=== PATIENT | female | born 1960 | race Caucasian/White ===

== ENCOUNTER 2023-01-18 22:10 | Emergency (ER) | payer OTHER, MEDICAID ==
[~2023-01-18] VITALS: Ht 157.5 cm; Wt 134.0 kg
[~2023-01-18 22:10] MED LIST: AC325T; AC325T PO; AC500T PO; ACET-461 PO; ACET-93 PO; ACHD5005 PO; ALBU17AE3 IH; ALBU18HF2 INH; ALBU2.5V4 IH; ALBU2.5V4 NEB; ALBU8.5H2 IH; ALBUTERAL INHALER; ALPR.25T; ASP325TEC; ASPI-1238 PO; ASPI-587 PO; ASPI-875 PO; ATOR20TA66 PO; ATOR80TA76 PO; ATR20T PO; ATRV10T PO; CALC-656 PO; CARB15DR2 OU; CEFD300C3 PO; CEFU250T80 PO; CEPH-507 PO; CLIN-144 PO; CLIN300C3 PO; CLOP-31 PO; CLOP75TA28 PO; COZ; CYCL10TA9 PO; DICY20TA57 PO; DILT-27 PO; DILT120C53 PO; DILT120C85 PO; DOCU-143 PO; DOCU100C37 PO; DOCU50LI PO; DOXY-444 PO; DOXY100C2 PO; ENXP40I.4 SC; ESOM20SU PO; EZET10TA49 PO; FLC100T1 PO; FURO-124 PO; FURO40TA4 PO; GABA250S2 PO; GBPN300C PO; HYDR-1231 PO; HYDR-34 PO; HYDR-3583 PO; HYDR-623; HYDR-757; HYDR-757 PO; HYDR1TAB66 PO; HYOS0.1283 SL; IBP800T PO; IBUP-1773 PO; INDO50CA82 PO; IPRA3AMP19 IH; ISOS20TA6 PO; ISOS30TA82 PO; KETO10TA77 PO; LEVO125T6 PO; LEVO137T2; LEVO150T6 PO; LEVO500T69 PO; LORA0.5T PO; LVT.1T PO; Levothyroxine PO; Lipitor; MECL-149 PO; MELO-195; METF-397 PO; METH500T PO; METO-333 PO; METO10TA3 PO; METR500T PO; MTP25TSR; NAPR-243 PO; NAPR220T66 PO; NF-ESOM40C; NITR-65 PO; NITR0.4T39 SL; NITR0.4T42 SL; NITR1PAT57 TD; NITR1PAT62 TOP; NITR1PAT84 TD; NTR.4SL; OMEP20CA12 PO; OMEP20CA18 PO; OMEP20TA2 PO; OMEP40CA36 PO; OMEP40CA6 PO; OMG1KC PO; ONDA-42 SL; ONDA4TAB8 PO; ONDA8TAB13 PO; ORPH100T PO; OXYC-12 PO; PHEN200T27 PO; PNT40TEC PO; POLY119P PO; POTA-53 PO; POVI15DR OU; PRAVASTATIN SODIUM 40 MG TAB; PRD20T PO; PROM25SU10 PR; RANO500T3 PO; RIVA20TA2; RIVA20TA2 PO; ROSU20TA32 PO; ROSU5TAB13 PO; SIME80TA16 PO; SIMV10TA26 PO; SIMV20TA26 PO; SUCR1TAB PO; SULF-222 PO; SULF1TAB38 PO; TEMA15CA54; THYR60TA4 PO; THYR90TA PO; TIZA-186; TOPI50TA13 PO; TRAM-42 PO; TRAM50TA2 PO; TRM50T PO; WARF-48 PO; WARF5TAB PO; WARF6TAB PO; WARF6TAB7 PO; WARF7.5T PO; WARF7.5T3 PO; WRF2.5T PO; WRF3T PO; WRF5T PO; [UNRECOGNIZED DRUG - OTHER]
[2023-01-18 22:37] LABS: BASOPHILS % (AUTO) 0 % (0-10); EOSINOPHILS # (AUTO) 0.1 10^3/uL (0.0-0.3); EOSINOPHILS % (AUTO) 1 % (0-10); HEMATOCRIT 45 % (35-52); HEMOGLOBIN 13.7 g/dL (11.5-16.0); LYMPHOCYTES # (AUTO) 1.5 10^3/uL (1.0-4.0); LYMPHOCYTES % (AUTO) 21 % (12-44); MEAN CORPUSCULAR HEMOGLOBIN 29 pg (25-34); MEAN CORPUSCULAR HGB CONC 31 g/dL (32-36); MEAN CORPUSCULAR VOLUME 93 fL (80-99); MEAN PLATELET VOLUME 10.2 fL (9.0-12.2); MONOCYTES # (AUTO) 0.5 10^3/uL (0.0-1.0); MONOCYTES % (AUTO) 7 % (0-12); NEUTROPHILS % (AUTO) 71 % (42-75); PLATELET COUNT 181 10^3/uL (130-400)
--- NOTE | 2023-01-18 22:37 | ED Neurological Problem ---
General Chief Complaint: Neurological Problems Stated Complaint: [facility] Nursing Triage Note: Pt presents with c/o numbness in face and blurred vision in L eye. She reports onset was approx [id number]. Pt reports history of migraine with numbness in face. Pt did take some benedryl due to thinking she was having a possible allergic reaction to pizza she ate. Symptoms started immediately after eating. History of Present Illness Date Seen by Provider: Jan 18, 2023 Time Seen by Provider: 22:17 Initial Comments 62 yr F with PMH of CAD with most current stent placed 2 weeks ago, on Warfarin/ Migraine/ Asthma/ past PE, is here with c/o left sided facial tingling/ numbness, and left eye blurry vision which began arounf 18:30, after she had pizza. Pt initially thought it might be an allergy reaction to dinner, and took some Benadryl at home. Pt has never had a stroke. Denies fever, chills, chest pain, palpitations, lower extremity or upper extremity weakness or sensation loss, shortness of breath, falls, dysuria. Allergies and Home Medications Allergies Coded Allergies: No Known Drug Allergies (Unverified , 01/18/23) Patient Home Medication List Home Medication List Reviewed: Yes Review of Systems Review of Systems Constitutional: no symptoms reported Eyes: Blurred Vision Ears, Nose, Mouth, Throat: no symptoms reported Respiratory: no symptoms reported Cardiovascular: no symptoms reported Gastrointestinal: no symptoms reported Genitourinary: no symptoms reported Musculoskeletal: no symptoms reported Skin: no symptoms reported Psychiatric/Neurological: Numbness, Tingling Endocrine: No Symptoms Reported Hematologic/Lymphatic: No Symptoms Reported Physical Exam Vital Signs Vital Signs - First Documented 01/18/23 22:21 Temp 35.8 Pulse 63 Resp 18 B/P (MAP) 151/80 (103) Capillary Refill : Less Than 3 Seconds Height, Weight, BMI Height: '" Weight: lbs. oz. kg; 54.00 BMI Method: General Appearance: WD/WN, no apparent distress, obese HEENT: PERRL/EOMI, normal ENT inspection, TMs normal, pharynx normal (No pharyngeal edema) Neck: non-tender, full range of motion, supple, normal inspection Respiratory: chest non-tender, lungs clear, normal breath sounds Cardiovascular: regular rate, rhythm Gastrointestinal: soft Back: normal inspection, no vertebral tenderness Extremities: normal range of motion, non-tender, normal inspection Neurologic/Psychiatric: display manager II-XII nml as tested, no motor/sensory deficits, alert, normal mood/affect, oriented x 3 Crainal Nerves: normal hearing, normal speech, PERRL Motor/Sensory: no motor deficit, no sensory deficit Skin: normal color Stroke NIH Stroke Scale Assessment Select: Initial Level of Consciousness: 0=Alert (0), Level of Consciousness- Questions: 0=Answers both month/age (0), LOC Commands: 0=Performs both tasks (0), Gaze: Normal (0), Visual Lopez: 0=No visual loss (0), Facial Movement (Facial Paresis): 0=Normal symmetrical mnt (0), Motor Function-Arms Right: 0=No drift (0), Motor Function-Arms Left: 0=No drift (0), Motor Function-Legs Right: 0=No drift (0), Motor Function-Legs Left: 0=No drift (0), Limb Ataxia: 0=Absent (0), Sensory: 0=Normal:no loss (0), Best Language: 0=No aphasia (0), Dysarthria: 0=Normal (0), Extinction & Inattention: 0=No abnormality (0), Total: 0 Progress/Results/Core Measures Results/Orders Lab Results Laboratory Tests Test 01/18/23 22:24 01/18/23 22:58 Range/Units White Blood Count 7.0 4.3-11.0 10^3/uL Red Blood Count 4.78 3.80-5.11 10^6/uL Hemoglobin 13.7 11.5-16.0 g/dL Hematocrit 45 35-52 % Mean Corpuscular Volume 93 80-99 fL Mean Corpuscular Hemoglobin 29 25-34 pg Mean Corpuscular Hemoglobin Concent 31 L 32-36 g/dL Red Cell Distribution Width 15.1 H 10.0-14.5 % Platelet Count 181 130-400 10^3/uL Mean Platelet Volume 10.2 9.0-12.2 fL Immature Granulocyte % (Auto) 0 % Neutrophils (%) (Auto) 71 42-75 % Lymphocytes (%) (Auto) 21 12-44 % Monocytes (%) (Auto) 7 0-12 % Eosinophils (%) (Auto) 1 0-10 % Basophils (%) (Auto) 0 0-10 % Neutrophils # (Auto) 5.0 1.8-7.8 10^3/uL Lymphocytes # (Auto) 1.5 1.0-4.0 10^3/uL Monocytes # (Auto) 0.5 0.0-1.0 10^3/uL Eosinophils # (Auto) 0.1 0.0-0.3 10^3/uL Basophils # (Auto) 0.0 0.0-0.1 10^3/uL Immature Granulocyte # (Auto) 0.0 0.0-0.1 10^3/uL Prothrombin Time 22.7 H 12.2-14.7 SEC INR Comment 1.9 H 0.8-1.4 Activated Partial Thromboplast Time 33 24-35 SEC Sodium Level 136 135-145 MMOL/L Potassium Level 3.9 3.6-5.0 MMOL/L Chloride Level 99 98-107 MMOL/L Carbon Dioxide Level 27 21-32 MMOL/L Anion Gap 10 5-14 MMOL/L Blood Urea Nitrogen 10 7-18 MG/DL Creatinine 0.78 0.60-1.30 MG/DL Estimat Glomerular Filtration Rate 85 BUN/Creatinine Ratio 13 Glucose Level 204 H 70-105 MG/DL Calcium Level 9.4 8.5-10.1 MG/DL Corrected Calcium 9.6 8.5-10.1 MG/DL Magnesium Level 2.1 1.6-2.4 MG/DL Total Bilirubin 0.2 0.1-1.0 MG/DL Aspartate Amino Transf (AST/SGOT) 21 5-34 U/L Alanine Aminotransferase (ALT/SGPT) 17 0-55 U/L Alkaline Phosphatase 104 40-136 U/L Troponin I < 0.30 <0.30 NG/ML Total Protein 8.5 H 6.4-8.2 GM/DL Albumin 3.8 3.2-4.5 GM/DL Serum Alcohol < 10 <10 MG/DL Urine Color YELLOW Urine Clarity CLEAR Urine pH 5.5 5-9 Urine Specific [place] >=1.030 1.016-1.022 Urine Protein NEGATIVE NEGATIVE Urine Glucose (UA) NEGATIVE NEGATIVE Urine Ketones NEGATIVE NEGATIVE Urine Nitrite NEGATIVE NEGATIVE Urine Bilirubin NEGATIVE NEGATIVE Urine Urobilinogen 0.2 < = 1.0 MG/DL Urine Leukocyte Esterase NEGATIVE NEGATIVE Urine RBC (Auto) TRACE-I H NEGATIVE Urine RBC 2-5 H /HPF Urine WBC 2-5 /HPF Urine Squamous Epithelial Cells 25-50 H /HPF Urine Crystals NONE /LPF Urine Bacteria LARGE H /HPF Urine Casts NONE /LPF Urine Mucus NEGATIVE /LPF Urine Culture Indicated NO Urine Opiates Screen NEGATIVE NEGATIVE Urine Oxycodone Screen NEGATIVE NEGATIVE Urine Methadone Screen NEGATIVE NEGATIVE Urine Propoxyphene Screen NEGATIVE NEGATIVE Urine Barbiturates Screen NEGATIVE NEGATIVE Ur Tricyclic Antidepressants Screen NEGATIVE NEGATIVE Urine Phencyclidine Screen NEGATIVE NEGATIVE Urine Amphetamines Screen NEGATIVE NEGATIVE Urine Methamphetamines Screen NEGATIVE NEGATIVE Urine Benzodiazepines Screen NEGATIVE NEGATIVE Urine Cocaine Screen NEGATIVE NEGATIVE Urine Cannabinoids Screen NEGATIVE NEGATIVE My Orders Orders - KOLTON KEMP MD Ct Head Wo-R/O Stroke (01/18/23 22:32) Alcohol (01/18/23 22:33) Cbc With Automated Diff (01/18/23 22:33) Comprehensive Metabolic Panel (01/18/23 22:33) Drug Screen Stat (Urine) (01/18/23 22:33) Magnesium (01/18/23 22:33) Protime With Inr (01/18/23 22:33) Partial Thromboplastin Time (01/18/23 22:33) Ua Culture If Indicated (01/18/23 22:33) Troponin I Fs (01/18/23 22:33) Continuous Ekg Monitoring (01/18/23 22:34) Ekg Tracing (01/18/23 22:34) Ct Angio Head/Neck (01/18/23 23:23) Iohexol Injection (Omnipaque 350 Mg/Ml 1 (01/18/23 23:30) Received Contrast (Hold Metformin- Contr (01/18/23 23:30) Ns (Ivpb) (Sodium Chloride 0.9% Ivpb Bag (01/18/23 23:30) Clopidogrel Tablet (Plavix Tablet) (01/19/23 01:00) Aspirin Chewable Tablet (Baby Aspirin Ch (01/19/23 01:00) Medications Given in ED Current Medications Medications Dose Ordered Sig/Thanh Route Start Time Stop Time Status Last Admin Dose Admin Iohexol 100 ml ONCE ONCE IV 01/18/23 23:30 01/18/23 23:31 DC 01/18/23 23:34 100 ML Sodium Chloride 100 ml ONCE ONCE IV 01/18/23 23:30 01/18/23 23:31 DC 01/18/23 23:34 75 ML Vital Signs/I&O 01/18/23 22:21 Temp 35.8 Pulse 63 Resp 18 B/P (MAP) 151/80 (103) Blood Pressure Mean: 103 Progress Progress Note : Progress Note 1. 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, to come to the ER every time this occurs, just to make sure. Pt reports that the blurry vision is new. - Discussed with Radiologist, Dr Cuello, nd this appears a chronic issue, but he is unsure if this is something that has progressively worsened since there is not any old images to compare it to. Advised further work-up. - Discussed with Neurology consult at , Dr Marcos and recommended MRI and dual anti-platelet. Discussed with hospitalist at [facility], Dr Duval, and we do not have MRI until Friday and no neurology on staff so she advised to transfer to at this time. Called back and they have accepted the pt for admission. - Plavix loading dose of 300mg and ASA 81mg given in ER -[facility] not possible due to weather. Local EMS alerted for a red run to . Initial ECG Impression Date: Jan 18, 2023 Initial ECG Impression Time: 22:43 Initial ECG Rate: 64 Initial ECG Rhythm: Normal Sinus Initial ECG Intervals: Normal Initial ECG Impression: Normal, Nonspecific Changes Initial ECG Comparisson: No Previous ECG Available Diagnostic Imaging Diagonstic Imaging: CT Plain Films/CT/US/NM/MRI: head Departure Impression Primary Impression: Symptomatic vertebral artery stenosis without infarction Qualified Codes: I65.02 - Occlusion and stenosis of left vertebral artery Disposition: XFER SHT-TRM HOSP Condition: Stable/Unchanged Admissions Decision to Admit Reason: Admit from ER (General) Transfer Transfer Reason: Exceeds level of care Time Spoke to Accepting Phy: 02:42 Transfer Progress Notes Transfer accepted to for admission. Neurologist: Dr. Marcos Transfer Facility: Method of Transfer: EMS Departure-Patient Inst. Referrals: IASDORA ARORA DO (PCP/Family) Primary Care Physician KOLTON KEMP MD Jan 18, 2023 22:37
[2023-01-18 22:47] LABS: INR 1.9 (0.8-1.4); PROTHROMBIN TIME PATIENT 22.7 SEC (12.2-14.7)
[2023-01-18 22:53] LABS: ALANINE AMINOTRANSFERASE 17 U/L (0-55); ALBUMIN 3.8 GM/DL (3.2-4.5); ALKALINE PHOSPHATASE 104 U/L (40-136); BILIRUBIN,TOTAL 0.2 MG/DL (0.1-1.0); BUN/CREATININE RATIO 13; CALCIUM 9.4 MG/DL (8.5-10.1); CARBON DIOXIDE 27 MMOL/L (21-32); CHLORIDE 99 MMOL/L (98-107); CREATININE SERUM 0.78 MG/DL (0.60-1.30); GFR ESTIMATED 85; GLUCOSE 204 MG/DL (70-105); MAGNESIUM 2.1 MG/DL (1.6-2.4); POTASSIUM 3.9 MMOL/L (3.6-5.0); SODIUM 136 MMOL/L (135-145); TOTAL PROTEIN 8.5 GM/DL (6.4-8.2)
[2023-01-18 23:01] LABS: BILIRUBIN,URINE NEGATIVE (NEGATIVE); CLARITY,URINE CLEAR; COLOR,URINE YELLOW; GLUCOSE, URINE (UA) NEGATIVE (NEGATIVE); KETONES,URINE NEGATIVE (NEGATIVE); LEUKOCYTE ESTERASE ,URINE NEGATIVE (NEGATIVE); NITRITE,URINE NEGATIVE (NEGATIVE); PH,URINE 5.5 (5-9); PROTEIN,URINE NEGATIVE (NEGATIVE)
[2023-01-18 23:05] LABS: BACTERIA,URINE LARGE /HPF; SQUAMOUS EPITHELIAL CELL,UR 25-50 /HPF
[2023-01-18 23:12] LABS: AMPHETAMINE SCREEN, URINE NEGATIVE (NEGATIVE); BARBITURATE SCREEN URINE NEGATIVE (NEGATIVE); BENZODIAZEPINES SCREEN URINE NEGATIVE (NEGATIVE); CANNABINOID SCREEN, URINE NEGATIVE (NEGATIVE); COCAINE SCREEN URINE NEGATIVE (NEGATIVE); METHADONE STAT NEGATIVE (NEGATIVE); OPIATE SCREEN URINE NEGATIVE (NEGATIVE); OXYCODONE STAT NEGATIVE (NEGATIVE); PROPOXYPHENE STAT NEGATIVE (NEGATIVE); TRICYCLIC ANTIDEPRESSANTS SCRE NEGATIVE (NEGATIVE)
[2023-01-18] MEDS ORDERED: NS 100 ML (IVPB) BAG IV ONE (23:30)
[2023-01-18] MEDS ORDERED: HOLD METFORMIN - RECEIVED CONTRAST 20 ML VIAL IV SCH (23:30)
[2023-01-18] MEDS ORDERED: IOHEXOL 350 MG/ML 100 ML (OMNIPAQUE 350) VIAL IV ONE (23:30)
[2023-01-19] MEDS ORDERED: CLOPIDOGREL 300 MG (PLAVIX) TABLET PO ONE ×2 (00:55→01:00)
[2023-01-19] MEDS ORDERED: ASPIRIN 81 MG CHEW (CHILDREN'S ASA) ONE (00:56)
[2023-01-19] MEDS ORDERED: ASPIRIN 81 MG CHEW (CHILDREN'S ASA) PO ONE (01:00)
[2023-01-19 01:39] VITALS: BP 153/106
--- NOTE | 2023-01-19 06:30 | Diagnostic Imaging Report ---
PROCEDURE: CT head wo r/o stroke. TECHNIQUE: Multiple contiguous axial images were obtained through the brain without the use of intravenous contrast. Auto Exposure Controls were utilized during the CT exam to meet ALARA standards for radiation dose reduction. INDICATION: Numbness in the face and blurred vision. COMPARISON: CT of the head on 10/07/2022 FINDINGS: No acute intracranial hemorrhage. The higginbotham-white matter differentiation is preserved. The ventricles and cortical sulci are normal. No intracranial mass or fluid collection. No midline shift or mass effect. The paranasal sinuses and mastoids are clear. The globes and orbits are normal. No skull fracture. IMPRESSION: No acute intracranial hemorrhage. No large vascular territory scales-white loss. No intracranial mass, midline shift, or hydrocephalus. Dictated by: Dictated on workstation # [id number]
--- NOTE | 2023-01-19 07:07 | Diagnostic Imaging Report ---
PROCEDURE: CT angiography of the head and CT angiography of the neck with and without contrast. TECHNIQUE: Contiguous noncontrast images were obtained from the skull base through the vertex. After intravenous contrast administration, helical CT angiography of the neck was performed. Source data was reformatted into 3D MIP projections. Delayed post contrast acquisition was also obtained. Auto Exposure Controls were utilized during the CT exam to meet ALARA standards for radiation dose reduction. INDICATION: Facial numbness and left eye blurred vision. COMPARISON: None FINDINGS: Vascular: Aortic arch is normal. The great vessels are normal. The right common, right internal, and right external carotid artery are patent and normal in caliber. Mild atherosclerosis in the proximal cervical ICA and within the cavernous segment without significant stenosis. The left common, left internal, left external carotid artery are patent and normal in caliber. Mild atherosclerosis in the proximal cervical ICA and cavernous ICA. No significant stenosis. Right vertebral artery is dominant and normal in caliber. Hypoplastic left vertebral artery with multifocal areas of occlusion/stenosis. Intracranial ICA demonstrates atherosclerosis within the cavernous segment without significant stenosis. Patent bilateral middle and anterior cerebral arteries. Patent basilar artery and bilateral final assembly worker. No intracranial stenosis, aneurysm, or arteriovenous malformation. Hypoplastic intracranial left vertebral artery with multifocal areas of stenosis/occlusion. Nonvascular: No acute intracranial hemorrhage. The higginbotham-white matter differentiation is preserved. No midline shift or mass effect. Ventricles and cortical sulci are normal. The paranasal sinuses and mastoids are clear. No skull fracture. The soft tissues demonstrate multiple subcentimeter cervical chain lymph nodes. No enhancing lymph nodes identified. 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 Included lung apices demonstrates emphysema. The osseous structures demonstrate ACDF from C5 C7. IMPRESSION: No acute large vessel occlusion in the head and neck. Hypoplastic left vertebral artery with multifocal areas of stenosis/occlusion. The right vertebral artery is patent. Bilateral carotid atherosclerosis without significant stenosis. 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 Emphysema. Dictated by: Dictated on workstation # [id number]
== END 2023-01-19 01:40 | disposition short-term general hospital (02) ==
LOC: ER FS 22:22
DX: I65.02 Occlusion and stenosis of left vertebral artery (principal); I26.99 Other pulmonary embolism without acute cor pulmonale; E66.9 Obesity, unspecified; Z79.01 Long term (current) use of anticoagulants; Z95.5 Presence of coronary angioplasty implant and graft; Z68.43 Body mass index [BMI] 50.0-59.9, adult; Z28.310 Unvaccinated for COVID-19
CPT/HCPCS: 36415; 70450; 70496; 70498; 80053; 80306; 81000; 83735; 84484; 85025; 85610; 85730; 93005; 99285; G0480; 80320; Q9967

== ENCOUNTER 2023-03-10 18:05 | Emergency (ER) | payer OTHER, MEDICAID ==
[~2023-03-10 18:05] MED LIST changes: +TOPI-241 PO; -TOPI50TA13 PO
--- NOTE | 2023-03-10 18:12 | ED Chest Pain ---
General Stated Complaint: CP History of Present Illness Date Seen by Provider: March 10, 2023 Time Seen by Provider: 18:08 Initial Comments 62-year-old female who presents with chest pain that started approximately hour and a half 2 hours prior to arrival. Patient took a nitro and had some relief and then had a little bit of return of her symptoms. Patient has multiple visits for chest pain. She has had stents x2 by Dr. Del Castillo roof designer at [facility] in [place]. Since her stent she has had a couple ER visits have all been negative. Patient reports she has some mild radiation of the pains subjective feeling of shortness of breath. Patient is just concerned because it seems her frequently happen following her stent placement. Allergies and Home Medications Allergies Coded Allergies: Penicillins (Verified Allergy, Unknown, 01/19/23) adhesive tape (Verified Allergy, Unknown, 01/19/23) atorvastatin (Verified Allergy, Unknown, 01/19/23) bee venom protein (honey bee) (Verified Allergy, Unknown, 01/19/23) isosorbide (Verified Allergy, Unknown, 01/19/23) ketorolac (Verified Allergy, Unknown, 01/19/23) methylprednisolone (Verified Allergy, Unknown, 01/19/23) promethazine (Verified Allergy, Unknown, 01/19/23) venom-honey bee (Unverified Allergy, Unknown, 01/20/23) Uncoded Allergies: TAPE (Allergy, Unknown, 01/20/23) Patient Home Medication List Home Medication List Reviewed: Yes Acetaminophen (Acetaminophen) 500 Mg Tablet, 500-1,000 MG PO Q8H PRN for PAIN- MILD (1-4), (Reported) Entered as Reported by: ALEJANDRA GARCIA on 02/20/16 1558 Aspirin (Aspirin EC) 81 Mg Tablet.dr, 81 MG PO DAILY, (Reported) Entered as Reported by: JANINE DUNCAN on 05/10/22 1004 Cefuroxime Axetil (Cefuroxime) 250 Mg Tablet, 250 MG PO BID Prescribed by: BEE MACE on 01/02/23 1316 Diltiazem HCl (Diltiazem 24Hr ER) 120 Mg Cap.er.24h, 120 MG PO BID Prescribed by: ELZBIETA VELEZ JR, MD on 05/10/22 1219 Ezetimibe (Ezetimibe) 10 Mg Tablet, 10 MG PO HS Prescribed by: ELZBIETA VELEZ JR, MD on 05/10/22 1219 Levothyroxine Sodium (Levothyroxine Sodium) 150 Mcg Tablet, 150 MCG PO HS, (Re ported) Entered as Reported by: ALEJANDRA GARCIA on 02/20/16 1524 Nitroglycerin (Nitroglycerin) 0.4 Mg Tab.subl, 0.4 MG SL UD PRN for CHEST PAIN, (Reported) Entered as Reported by: JANINE DUNCAN on 05/10/22 1004 Nitroglycerin (Nitro-Dur 0.6 MG/HR) 0.6 Mg/Hour Patch.td24, 0.6 MG TD DAILY PRN for CHEST PAIN (ANGINA), (Reported) Entered as Reported by: JANINE DUNCAN on 05/10/22 1004 Omeprazole (Omeprazole) 40 Mg Capsule.dr, 40 MG PO HS, (Reported) Entered as Reported by: JANINE DUNCAN on 05/10/22 1005 Povidone (Soothe Hydration) 1.25 % Drops, 1-2 DROPS OU UD PRN for DRY EYES, (Reported) Entered as Reported by: JANINE DUNCAN on 03/01/22 1220 Rosuvastatin Calcium (Rosuvastatin Calcium) 20 Mg Tablet, 40 MG PO HS Prescribed by: ELZBIETA VELEZ JR, MD on 05/10/22 1219 Sulfamethoxazole/Trimethoprim (Bactrim Ds Tablet) 1 Each Tablet, 1 EACH PO BID Prescribed by: ROWENA MENDEZ on 07/20/22 1841 Warfarin Sodium (Warfarin Sodium) 5 Mg Tablet, 5 MG PO FRI,,FRI @HS, (Reported) Entered as Reported by: ALEJANDRA GARCIA on 02/20/16 1542 Warfarin Sodium (Warfarin Sodium) 5 Mg Tablet, 7.5 MG PO BAIN,MO,,TH @HS, (Reported) Entered as Reported by: JANINE DUNCAN on 07/17/20 1138 Review of Systems Review of Systems Constitutional: No chills, No fever Respiratory: See HPI Cardiovascular: See HPI Gastrointestinal: No Symptoms Reported Genitourinary: No Symptoms Reported Musculoskeletal: no symptoms reported Skin: no symptoms reported Psychiatric/Neurological: No Symptoms Reported Endocrine: No Symptoms Reported Past Tlkgnsd-Khwiyw-Mtanok Hx Family Medical History Arthritis G8 SISTER Cardiovascular disease 03 FATHER Colon cancer 03 MOTHER Completed stroke 03 MOTHER Hypertension 03 MOTHER G8 BROTHER Myocardial infarction 03 MOTHER Thyroid disease G8 SISTER Physical Exam Vital Signs Vital Signs - First Documented 03/10/23 18:24 Temp 36.3 Pulse 64 Resp 20 B/P (MAP) 102/73 (83) Pulse Ox 95 O2 Delivery Room Air Capillary Refill : Height, Weight, BMI Height: '" Weight: lbs. oz. kg; 54.00 BMI Method: General Appearance: No Apparent Distress, WD/WN, Obese Neck: Non Tender, Supple Respiratory: Lungs Clear, Normal Breath Sounds, No Accessory Muscle Use Cardiovascular: Regular Rate, Rhythm, No Edema Gastrointestinal: Non Tender, Soft Extremity: Normal Capillary Refill, Normal Range of Motion Neurologic/Psychiatric: Alert, Oriented x3 Skin: Other Progress/Results/Core Measures Results/Orders Lab Results Laboratory Tests Test 03/10/23 18:13 03/10/23 20:13 Range/Units White Blood Count 9.3 4.3-11.0 10^3/uL Red Blood Count 4.21 3.80-5.11 10^6/uL Hemoglobin 12.3 11.5-16.0 g/dL Hematocrit 39 35-52 % Mean Corpuscular Volume 92 80-99 fL Mean Corpuscular Hemoglobin 29 25-34 pg Mean Corpuscular Hemoglobin Concent 32 32-36 g/dL Red Cell Distribution Width 14.9 H 10.0-14.5 % Platelet Count 195 130-400 10^3/uL Mean Platelet Volume 10.4 9.0-12.2 fL Immature Granulocyte % (Auto) 0 % Neutrophils (%) (Auto) 65 42-75 % Lymphocytes (%) (Auto) 25 12-44 % Monocytes (%) (Auto) 9 0-12 % Eosinophils (%) (Auto) 1 0-10 % Basophils (%) (Auto) 0 0-10 % Neutrophils # (Auto) 6.0 1.8-7.8 10^3/uL Lymphocytes # (Auto) 2.3 1.0-4.0 10^3/uL Monocytes # (Auto) 0.8 0.0-1.0 10^3/uL Eosinophils # (Auto) 0.1 0.0-0.3 10^3/uL Basophils # (Auto) 0.0 0.0-0.1 10^3/uL Immature Granulocyte # (Auto) 0.0 0.0-0.1 10^3/uL Sodium Level 138 135-145 MMOL/L Potassium Level 4.0 3.6-5.0 MMOL/L Chloride Level 102 98-107 MMOL/L Carbon Dioxide Level 24 21-32 MMOL/L Anion Gap 12 5-14 MMOL/L Blood Urea Nitrogen 14 7-18 MG/DL Creatinine 0.73 0.60-1.30 MG/DL Estimat Glomerular Filtration Rate 92 BUN/Creatinine Ratio 19 Glucose Level 90 70-105 MG/DL Calcium Level 8.7 8.5-10.1 MG/DL Corrected Calcium 8.9 8.5-10.1 MG/DL Magnesium Level 2.2 1.6-2.4 MG/DL Total Bilirubin 0.2 0.1-1.0 MG/DL Aspartate Amino Transf (AST/SGOT) 27 5-34 U/L Alanine Aminotransferase (ALT/SGPT) 17 0-55 U/L Alkaline Phosphatase 104 40-136 U/L Troponin I < 0.30 < 0.30 <0.30 NG/ML Pro-B-Type Natriuretic Peptide 47.6 <125.0 PG/ML Total Protein 7.5 6.4-8.2 GM/DL Albumin 3.7 3.2-4.5 GM/DL My Orders Orders - MUHAMMAD,GIGI L DO Ekg Tracing (03/10/23 18:13) Monitor-Rhythm Ecg Trace Only (03/10/23 18:13) Cbc With Automated Diff (03/10/23 18:13) Comprehensive Metabolic Panel (03/10/23 18:13) Magnesium (03/10/23 18:13) Probnp Fs (03/10/23 18:13) Troponin I Fs (03/10/23 18:13) Chest 1 View Ap/Pa Only (03/10/23 18:13) Aspirin Chewable Tablet (Baby Aspirin Ch (03/10/23 18:30) Albuterol/Ipra Inhalation Soln (Duoneb I (03/10/23 18:45) Svn Small Volume Nebulizer (03/10/23 18:39) Troponin I Fs (03/10/23 20:01) Medications Given in ED Current Medications Medications Dose Ordered Sig/Thanh Route Start Time Stop Time Status Last Admin Dose Admin Albuterol/ Ipratropium 3 ml ONCE ONCE INH 03/10/23 18:45 03/10/23 18:46 DC 03/10/23 18:45 3 ML Aspirin 324 mg ONCE ONCE PO 03/10/23 18:30 03/10/23 18:31 DC 03/10/23 18:25 324 MG Vital Signs/I&O 03/10/23 03/10/23 03/10/23 18:24 18:45 20:52 Temp 36.3 36.0 Pulse 64 64 Resp 20 20 B/P (MAP) 102/73 (83) 102/73 Pulse Ox 95 95 95 O2 Delivery Room Air Room Air Room Air Progress Progress Note : Progress Note Patient's diagnostic studies were ordered reviewed and interpreted by me with no significant findings or changes on her labs. Patient had troponin x2 that were negative. Patient's notes and visits were reviewed along with prior EKGs. Patient had 2 EKGs that showed normal sinus rhythm with low QRS but no acute ST changes or elevation or concerning findings. Patient's chest x-ray was ordered reviewed with initial interpretation negative by me with final interpretation per radiology report. 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 Patient has multiple visits for similar symptoms. I discussed with them that at this time I do not feel there is acute coronary syndrome and that hospitalization is not needed. They can call Dr. Del Castillo in the morning to discuss her ER visit to see if he would like any further testing. She does have a media monitor on she continues to janna her symptoms. Patient has sign ificant risk of morbidity and mortality based on her social determinants of health, prior history. Discussed need to return to the ER with any concerns. She is stable and discharged home. Initial ECG Impression Date: March 10, 2023 Initial ECG Impression Time: 18:10 Initial ECG Rate: 63 Initial ECG Rhythm: Normal Sinus Initial ECG Intervals: Normal Initial ECG Impression: Normal Initial ECG Comparisson: Unchanged Comment no acute findings EKG : EKG Time: 19:44 Rhythm: Normal Sinus ECG Comparisson: Unchanged ECG Impression: Normal Comment No acute change Diagnostic Imaging Diagonstic Imaging: Xray Plain Films/CT/US/NM/MRI: chest Comments Date of Exam:03/10/23 CHEST 1 VIEW AP/PA ONLY EXAMINATION: Chest, one view. HISTORY: Chest pain. COMPARISON: 01/02/2023. FINDINGS: The lung volumes are normal. No focal consolidation is seen. No large pleural effusion or pneumothorax is seen. The cardiomediastinal silhouette is enlarged. No acute osseous abnormality is seen. IMPRESSION: 1. Cardiomegaly, similar to the prior exam. No overt pulmonary edema. Reviewed: Reviewed by Me, Reviewed/Discussed Departure Impression Primary Impression: Chest pain not due to acute coronary syndrome Disposition: HOME, SELF-CARE Condition: Stable Departure-Patient Inst. Referrals: PILLO VALDES APRN (PCP/Family) Primary Care Physician Patient Instructions: Troponin Test, Chest Pain Add. Discharge Instructions: Please follow-up with Dr. Del Castillo. You may call his office in the morning. Please discuss with him the possibility of Mikel syndrome that is causing your cardiac pain. Follow-up with your primary care provider as needed. Return to the ER with any concerns GIGI MUHAMMAD DO March 10, 2023 18:12
[2023-03-10 18:20] LABS: BASOPHILS % (AUTO) 0 % (0-10); EOSINOPHILS # (AUTO) 0.1 10^3/uL (0.0-0.3); EOSINOPHILS % (AUTO) 1 % (0-10); HEMATOCRIT 39 % (35-52); HEMOGLOBIN 12.3 g/dL (11.5-16.0); LYMPHOCYTES # (AUTO) 2.3 10^3/uL (1.0-4.0); LYMPHOCYTES % (AUTO) 25 % (12-44); MEAN CORPUSCULAR HEMOGLOBIN 29 pg (25-34); MEAN CORPUSCULAR HGB CONC 32 g/dL (32-36); MEAN CORPUSCULAR VOLUME 92 fL (80-99); MEAN PLATELET VOLUME 10.4 fL (9.0-12.2); MONOCYTES # (AUTO) 0.8 10^3/uL (0.0-1.0); MONOCYTES % (AUTO) 9 % (0-12); NEUTROPHILS % (AUTO) 65 % (42-75); PLATELET COUNT 195 10^3/uL (130-400); WHITE BLOOD COUNT 9.3 10^3/uL (4.3-11.0)
[2023-03-10] MEDS ORDERED: ASPIRIN 81 MG CHEW (CHILDREN'S ASA) PO ONE (18:30)
--- NOTE | 2023-03-10 18:30 | Diagnostic Imaging Report ---
EXAMINATION: Chest, one view. HISTORY: Chest pain. COMPARISON: 01/02/2023. FINDINGS: The lung volumes are normal. No focal consolidation is seen. No large pleural effusion or pneumothorax is seen. The cardiomediastinal silhouette is enlarged. No acute osseous abnormality is seen. IMPRESSION: 1. Cardiomegaly, similar to the prior exam. No overt pulmonary edema. Dictated by: Dictated on workstation # [id number]
[2023-03-10] MEDS ORDERED: RT-ALBUTEROL/IPRATROPIUM 3 ML (DUONEB) VIAL INH ONE (18:45)
[2023-03-10 18:50] LABS: ALKALINE PHOSPHATASE 104 U/L (40-136); BILIRUBIN,TOTAL 0.2 MG/DL (0.1-1.0); BUN/CREATININE RATIO 19; CALCIUM 8.7 MG/DL (8.5-10.1); CARBON DIOXIDE 24 MMOL/L (21-32); CHLORIDE 102 MMOL/L (98-107); CREATININE SERUM 0.73 MG/DL (0.60-1.30); GFR ESTIMATED 92; GLUCOSE 90 MG/DL (70-105); MAGNESIUM 2.2 MG/DL (1.6-2.4); SODIUM 138 MMOL/L (135-145)
[2023-03-10 18:51] LABS: ALANINE AMINOTRANSFERASE 17 U/L (0-55); ALBUMIN 3.7 GM/DL (3.2-4.5); TOTAL PROTEIN 7.5 GM/DL (6.4-8.2)
[2023-03-10 20:52] VITALS: BP 102/73
== END 2023-03-10 20:52 | disposition home or self-care (01) ==
LOC: EDUNIT# 18:05 → ER FS 18:06
DX: R07.9 Chest pain, unspecified (principal); E66.9 Obesity, unspecified; Z68.43 Body mass index [BMI] 50.0-59.9, adult; Z88.6 Allergy status to analgesic agent
CPT/HCPCS: 36415; 71045; 80053; 83735; 83880; 84484; 85025; 93005; 93041; 94640

== ENCOUNTER 2023-03-27 14:57 | Emergency (ER) | payer MEDICARE, MEDICAID ==
[~2023-03-27] VITALS: Ht 157 cm; Wt 136.0 kg
[2023-03-27] MEDS ORDERED: morphine INJ 10 MG/ML 1ML (SYR OR VIAL) IV STA (15:11)
--- NOTE | 2023-03-27 15:14 | ED Chest Pain ---
General Chief Complaint: Chest Pain Stated Complaint: CHEST PAINS Source: patient Exam Limitations: no limitations (ROWENA LYNCH) History of Present Illness Date Seen by Provider: Mar 27, 2023 Time Seen by Provider: 15:13 Initial Comments Patient is a 62-year-old female presents ED with left-sided chest pain. She r eports acute onset of pain 1:30 PM. She states she was riding in the car at the time. She rates pain 8 out of 10. She applied nitro patch with some improvement. Described as sharp without radiation. Associate shortness of breath with nausea. History of coronary artery disease, PE. Currently on warfarin. She states she has been seen for similar type pain in the past. Last seen 2 weeks ago for similar type pain. She denies fever, chills, cough, abdominal pain, headache, dizziness. Patient states she follows up with a photographer lithographic at [facility]. Patient states she attempted to contact her photographer lithographic after her last visit but did not receive a call. (ROWENA LYNCH) Allergies and Home Medications Allergies Coded Allergies: Penicillins (Verified Allergy, Unknown, 01/19/23) adhesive tape (Verified Allergy, Unknown, 01/19/23) atorvastatin (Verified Allergy, Unknown, 01/19/23) bee venom protein (honey bee) (Verified Allergy, Unknown, 01/19/23) isosorbide (Verified Allergy, Unknown, 01/19/23) ketorolac (Verified Allergy, Unknown, 01/19/23) methylprednisolone (Verified Allergy, Unknown, 01/19/23) promethazine (Verified Allergy, Unknown, 01/19/23) venom-honey bee (Unverified Allergy, Unknown, 01/20/23) Uncoded Allergies: TAPE (Allergy, Unknown, 01/20/23) Patient Home Medication List Home Medication List Reviewed: Yes (ROWENA LYNCH) Acetaminophen (Acetaminophen) 500 Mg Tablet, 500-1,000 MG PO Q8H PRN for PAIN- MILD (1-4), (Reported) Entered as Reported by: ALEJANDRA GARCIA on 02/20/16 1558 Aspirin (Aspirin EC) 81 Mg Tablet.dr, 81 MG PO DAILY, (Reported) Entered as Reported by: JANINE DUNCAN on 05/10/22 1004 Cefuroxime Axetil (Cefuroxime) 250 Mg Tablet, 250 MG PO BID Prescribed by: BEE MACE on 01/02/23 1316 Diltiazem HCl (Diltiazem 24Hr ER) 120 Mg Cap.er.24h, 120 MG PO BID Prescribed by: ELZBIETA VELEZ JR, MD on 05/10/22 1219 Ezetimibe (Ezetimibe) 10 Mg Tablet, 10 MG PO HS Prescribed by: ELZBIETA VELEZ JR, MD on 05/10/22 1219 Levothyroxine Sodium (Levothyroxine Sodium) 150 Mcg Tablet, 150 MCG PO HS, (Reported) Entered as Reported by: ALEJANDRA GARCIA on 02/20/16 1524 Nitroglycerin (Nitroglycerin) 0.4 Mg Tab.subl, 0.4 MG SL UD PRN for CHEST PAIN, (Reported) Entered as Reported by: JANINE DUNCAN on 05/10/22 1004 Nitroglycerin (Nitro-Dur 0.6 MG/HR) 0.6 Mg/Hour Patch.td24, 0.6 MG TD DAILY PRN for CHEST PAIN (ANGINA), (Reported) Entered as Reported by: JANINE DUNCAN on 05/10/22 1004 Omeprazole (Omeprazole) 40 Mg Capsule.dr, 40 MG PO HS, (Reported) Entered as Reported by: JANINE DUNCAN on 05/10/22 1005 Povidone (Soothe Hydration) 1.25 % Drops, 1-2 DROPS OU UD PRN for DRY EYES, (Reported) Entered as Reported by: JANINE DUNCAN on 03/01/22 1220 Rosuvastatin Calcium (Rosuvastatin Calcium) 20 Mg Tablet, 40 MG PO HS Prescribed by: ELZBIETA VELEZ JR, MD on 05/10/22 1219 Sulfamethoxazole/Trimethoprim (Bactrim Ds Tablet) 1 Each Tablet, 1 EACH PO BID Prescribed by: ROWENA MENDEZ on 07/20/22 1841 Warfarin Sodium (Warfarin Sodium) 5 Mg Tablet, 5 MG PO WED,,SAT @HS, (Reported) Entered as Reported by: ALEJANDRA GARCIA on 02/20/16 1542 Warfarin Sodium (Warfarin Sodium) 5 Mg Tablet, 7.5 MG PO BAIN,MO,,TH @HS, (Reported) Entered as Reported by: JANINE DUNCAN on 07/17/20 1138 Review of Systems Review of Systems Constitutional: No chills, No diaphoresis, No malaise, No weakness EENTM: No Blurred Vision, No Double Vision, No Eye Pain Respiratory: Denies Cough, Denies Orthopnea; Shortness of Air Cardiovascular: Chest Pain Gastrointestinal: Denies Abdominal Pain, Denies Diarrhea; Nausea; Denies Vomiting Genitourinary: Denies Drainage, Denies Frequency Musculoskeletal: No back pain Skin: No change in color, No change in hair/nails (ROWENA LYNCH) All Other Systems Reviewed Negative Unless Noted: Yes (ROWENA LYNCH) Past Opectnx-Ukpjjg-Znnphd Hx Patient Social History Tobacco Use?: No Substance use?: No Alcohol Use?: No (ROWENA LYNCH) Immunizations Up To Date First/Initial COVID19 Vaccinat: Denies (ROWENA LYNCH) Past Medical History Surgery/Hospitalization HX: GERD; Chronic UTI's; Uterine Fibroids; OA; Chronic Abdominal pain; CAGE surgery neck; Neuropathy; Thyroidectomy; Asthma; Sleep Apnea; DVT (ROWENA LYNCH) Family Medical History Arthritis G8 SISTER Cardiovascular disease 03 FATHER Colon cancer 03 MOTHER Completed stroke 03 MOTHER Hypertension 03 MOTHER G8 BROTHER Myocardial infarction 03 MOTHER Thyroid disease G8 SISTER Physical Exam Vital Signs Vital Signs - First Documented 03/27/23 15:09 Temp 36.5 Pulse 75 Resp 20 B/P (MAP) 144/90 (108) Pulse Ox 95 O2 Delivery Room Air (LAMBERT NEGRETE MD) Vital Signs Capillary Refill : (ROWENA LYNCH) Height, Weight, BMI Height: '" Weight: lbs. oz. kg; 54.00 BMI Method: General Appearance: No Apparent Distress, WD/WN HEENT: PERRL/EOMI, TMs Normal, Normal ENT Inspection, Pharynx Normal Neck: Full Range of Motion, Normal Inspection, Non Tender, Supple Respiratory: Chest Non Tender, Lungs Clear, Normal Breath Sounds, No Accessory Muscle Use, No Respiratory Distress Cardiovascular: Regular Rate, Rhythm, No Edema, No Gallop, No JVD, No Murmur Gastrointestinal: Normal Bowel Sounds, No Organomegaly, No Pulsatile Mass, Non Tender, Soft Extremity: Normal Capillary Refill, Normal Inspection Neurologic/Psychiatric: Alert, Oriented x3, No Motor/Sensory Deficits, Normal Mood/Affect, power hammer operator II-XII Norm as Tested Skin: Normal Color, Warm/Dry (ROWENA LYNCH) Progress/Results/Core Measures Results/Orders Lab Results Laboratory Tests Test 03/27/23 15:15 03/27/23 17:47 Range/Units White Blood Count 10.0 4.3-11.0 10^3/uL Red Blood Count 4.44 3.80-5.11 10^6/uL Hemoglobin 12.9 11.5-16.0 g/dL Hematocrit 41 35-52 % Mean Corpuscular Volume 92 80-99 fL Mean Corpuscular Hemoglobin 29 25-34 pg Mean Corpuscular Hemoglobin Concent 32 32-36 g/dL Red Cell Distribution Width 15.2 H 10.0-14.5 % Platelet Count 207 130-400 10^3/uL Mean Platelet Volume 10.9 9.0-12.2 fL Immature Granulocyte % (Auto) 0 % Neutrophils (%) (Auto) 68 42-75 % Lymphocytes (%) (Auto) 23 12-44 % Monocytes (%) (Auto) 7 0-12 % Eosinophils (%) (Auto) 1 0-10 % Basophils (%) (Auto) 0 0-10 % Neutrophils # (Auto) 6.8 1.8-7.8 10^3/uL Lymphocytes # (Auto) 2.3 1.0-4.0 10^3/uL Monocytes # (Auto) 0.7 0.0-1.0 10^3/uL Eosinophils # (Auto) 0.1 0.0-0.3 10^3/uL Basophils # (Auto) 0.0 0.0-0.1 10^3/uL Immature Granulocyte # (Auto) 0.0 0.0-0.1 10^3/uL Prothrombin Time 21.6 H 12.2-14.7 SEC INR Comment 1.9 H 0.8-1.4 Activated Partial Thromboplast Time 35 24-35 SEC Sodium Level 135 135-145 MMOL/L Potassium Level 4.0 3.6-5.0 MMOL/L Chloride Level 100 98-107 MMOL/L Carbon Dioxide Level 24 21-32 MMOL/L Anion Gap 11 5-14 MMOL/L Blood Urea Nitrogen 11 7-18 MG/DL Creatinine 1.13 0.60-1.30 MG/DL Estimat Glomerular Filtration Rate 54 BUN/Creatinine Ratio 10 Glucose Level 190 H 70-105 MG/DL Calcium Level 9.6 8.5-10.1 MG/DL Corrected Calcium 9.6 8.5-10.1 MG/DL Magnesium Level 2.2 1.6-2.4 MG/DL Total Bilirubin 0.3 0.1-1.0 MG/DL Aspartate Amino Transf (AST/SGOT) 24 5-34 U/L Alanine Aminotransferase (ALT/SGPT) 22 0-55 U/L Alkaline Phosphatase 99 40-136 U/L Myoglobin 37.1 10.0-92.0 NG/ML Troponin I < 0.028 < 0.028 <0.028 NG/ML B-Type Natriuretic Peptide < 10.0 <100.0 PG/ML Total Protein 8.2 6.4-8.2 GM/DL Albumin 4.0 3.2-4.5 GM/DL Lipase 58 8-78 U/L (LAMBERT NEGRETE MD) Medications Given in ED Current Medications Medications Dose Ordered Sig/Thahn Route Start Time Stop Time Status Last Admin Dose Admin Aspirin 324 mg ONCE ONCE PO 03/27/23 15:15 03/27/23 15:16 DC 03/27/23 15:17 324 MG (LAMBERT NEGRETE MD) Vital Signs/I&O 03/27/23 15:09 Temp 36.5 Pulse 75 Resp 20 B/P (MAP) 144/90 (108) Pulse Ox 95 O2 Delivery Room Air (LAMBERT NEGRETE MD) Comment Sinus rhythm, low QRS voltage in pericardial leads, 75 bpm, QRS duration 70 MS, QTc 402 MS (ROWENA LYNCH) Departure Communication (PCP) Reviewed previous ER visits, H&P, lab testing. Differential diagnosis, ACS, pneumonia, pneumothorax, PE. No recent travels or surgeries. Acute onset of chest pain around 1:30 PM while driving. Associate shortness of breath with nausea. No increasing pain with exertion. Similar type pain in the past. She immediately applied nitro patch with improvement of pain 8 out of 10. She follows a photographer lithographic at [facility]. She has history of 3 stents placed. Last stent placed 6 months ago at [facility]. She has been having this intermittent pain since her last stent. On arrival vital signs stable. EKG showed normal sinus rhythm without evidence of ST elevation or depression. No acute changes from her previous visit 2 weeks ago at [facility] for chest pain. She received IV morphine 4 mg and 324 mg of aspirin here with resolution of pain. She was not tachycardic or hypoxic. She does take warfarin for chronic PEs. Patient INR 1.9. Subtherapeutic. She has not taken her warfarin dosed this evening. Chest x-ray was negative for acute abnormalities. She was not hypoxic. She denies flulike symptoms. CBC, CMP, troponin, BNP was ordered. Initial troponin negative. Hematology and chemistry was grossly unremarkable. Due to the reassuring EKG with improvement of her chest pain 3-hour delta troponin was ordered. Delta troponin was negative. She remained asymptomatic during her visit. She states typically Nitropaste helps with her chest pain but did not today. She has a history of intolerant to antianginal medication. Recommend contacting her photographer lithographic tomorrow to discuss further follow-up due to this reoccurring angina since her stent placement. If continue worsening chest pain not resolved with her angina medication recommend returning back to ED. Patient has remained pain free. (ROWENA LYNCH) Impression Primary Impression: Chest pain Disposition: 01 HOME, SELF-CARE Condition: Stable Departure-Patient Inst. Decision time for Depature: 18:10 (ROWENA LYNCH) Referrals: PILLO VALDES APRN (PCP/Family) Primary Care Physician Patient Instructions: Chest Pain Add. Discharge Instructions: Recommend following up with your primary care physician for further evaluation. I recommend continue with your nitro. Follow-up with your photographer lithographic for further evaluation. If any worsening symptoms to return back to ED All discharge instructions reviewed with patient and/or family. Voiced understanding. ATTENDING PHYSICIAN NOTE: I was physically present as attending physician in the emergency department during the care of this patient, but I was not directly involved in the decision making or delivery of care for this patient. (LAMBERT NEGRETE MD) ROWENA LYNCH Mar 27, 2023 15:14 LAMBERT NEGRETE MD Mar 27, 2023 18:24
[2023-03-27] MEDS ORDERED: ASPIRIN 81 MG CHEW (CHILDREN'S ASA) PO ONE (15:15)
[2023-03-27 15:26] LABS: BASOPHILS % (AUTO) 0 % (0-10); EOSINOPHILS # (AUTO) 0.1 10^3/uL (0.0-0.3); EOSINOPHILS % (AUTO) 1 % (0-10); HEMATOCRIT 41 % (35-52); HEMOGLOBIN 12.9 g/dL (11.5-16.0); LYMPHOCYTES # (AUTO) 2.3 10^3/uL (1.0-4.0); LYMPHOCYTES % (AUTO) 23 % (12-44); MEAN CORPUSCULAR HEMOGLOBIN 29 pg (25-34); MEAN CORPUSCULAR HGB CONC 32 g/dL (32-36); MEAN CORPUSCULAR VOLUME 92 fL (80-99); MEAN PLATELET VOLUME 10.9 fL (9.0-12.2); MONOCYTES # (AUTO) 0.7 10^3/uL (0.0-1.0); MONOCYTES % (AUTO) 7 % (0-12); NEUTROPHILS # (AUTO) 6.8 10^3/uL (1.8-7.8); NEUTROPHILS % (AUTO) 68 % (42-75); PLATELET COUNT 207 10^3/uL (130-400)
--- NOTE | 2023-03-27 15:31 | Diagnostic Imaging Report ---
INDICATION: Chest pain Portable chest 3:30 PM There is a loop recorder projecting over left lower chest. Heart size and pulmonary vascularity are normal. Lungs are clear. There are no effusions or pneumothoraces. IMPRESSION: No acute abnormalities in the chest Dictated by: Dictated on workstation # [id number]
[2023-03-27 15:35] LABS: CHLORIDE 100 MMOL/L (98-107); SODIUM 135 MMOL/L (135-145)
[2023-03-27 15:36] LABS: CALCIUM 9.6 MG/DL (8.5-10.1)
[2023-03-27 15:38] LABS: GLUCOSE 190 MG/DL (70-105); INR 1.9 (0.8-1.4); PROTHROMBIN TIME PATIENT 21.6 SEC (12.2-14.7); TOTAL PROTEIN 8.2 GM/DL (6.4-8.2)
[2023-03-27 15:39] LABS: CARBON DIOXIDE 24 MMOL/L (21-32)
[2023-03-27 15:40] LABS: BILIRUBIN,TOTAL 0.3 MG/DL (0.1-1.0)
[2023-03-27 15:41] LABS: ALKALINE PHOSPHATASE 99 U/L (40-136); CREATININE SERUM 1.13 MG/DL (0.60-1.30); GFR ESTIMATED 54
[2023-03-27 15:42] LABS: BUN/CREATININE RATIO 10
[2023-03-27 15:44] LABS: ALANINE AMINOTRANSFERASE 22 U/L (0-55); MAGNESIUM 2.2 MG/DL (1.6-2.4)
[2023-03-27 15:45] LABS: LIPASE 58 U/L (8-78)
[2023-03-27 18:35] VITALS: BP 119/67
== END 2023-03-27 18:28 | disposition home or self-care (01) ==
LOC: EDUNIT# 14:57 → ER 14:59
DX: R07.89 Other chest pain (principal); R06.02 Shortness of breath; R11.0 Nausea; Z86.711 Personal history of pulmonary embolism; Z95.5 Presence of coronary angioplasty implant and graft; Z95.1 Presence of aortocoronary bypass graft; Z88.6 Allergy status to analgesic agent; Z79.01 Long term (current) use of anticoagulants; Z28.310 Unvaccinated for COVID-19
CPT/HCPCS: 36415; 71045; 80053; 83690; 83735; 83874; 83880; 84484; 85025; 85610; 85730; 93005; 93041

== ENCOUNTER 2023-04-03 18:01 | Emergency (ER) | payer MEDICARE, MEDICAID ==
[~2023-04-03] VITALS: Ht 157 cm; Wt 138.0 kg
[~2023-04-03 18:01] MED LIST changes: +DILT120C71 PO; -DILT120C85 PO
[2023-04-03 18:09] VITALS: BP 145/96
--- NOTE | 2023-04-03 18:09 | ED Chest Pain ---
General Stated Complaint: CHEST PAIN History of Present Illness Date Seen by Provider: Apr 03, 2023 Time Seen by Provider: 18:04 Initial Comments 62-year-old female presents with chest pain that started just prior to arrival. Patient has numerous visits for exactly the same thing. She was just right in the car when it happened. Sharp stabbing. She does have her own nitro pass on. Patient saw Dr. Del Castillo's PA yesterday and they have arranged for her to have an outpatient echo and then repeat stress test. Allergies and Home Medications Allergies Coded Allergies: Penicillins (Verified Allergy, Unknown, 01/19/23) adhesive tape (Verified Allergy, Unknown, 01/19/23) atorvastatin (Verified Allergy, Unknown, 01/19/23) bee venom protein (honey bee) (Verified Allergy, Unknown, 01/19/23) isosorbide (Verified Allergy, Unknown, 01/19/23) ketorolac (Verified Allergy, Unknown, 01/19/23) methylprednisolone (Verified Allergy, Unknown, 01/19/23) promethazine (Verified Allergy, Unknown, 01/19/23) venom-honey bee (Unverified Allergy, Unknown, 01/20/23) Uncoded Allergies: TAPE (Allergy, Unknown, 01/20/23) Patient Home Medication List Home Medication List Reviewed: Yes Acetaminophen (Acetaminophen) 500 Mg Tablet, 500-1,000 MG PO Q8H PRN for PAIN- MILD (1-4), (Reported) Entered as Reported by: ALEJANDRA GARCIA on 02/20/16 1558 Aspirin (Aspirin EC) 81 Mg Tablet.dr, 81 MG PO DAILY, (Reported) Entered as Reported by: JANINE DUNCAN on 05/10/22 1004 Cefuroxime Axetil (Cefuroxime) 250 Mg Tablet, 250 MG PO BID Prescribed by: BEE MACE on 01/02/23 1316 Diltiazem HCl (Diltiazem 24Hr ER) 120 Mg Cap.er.24h, 120 MG PO BID Prescribed by: ELZBIETA VELEZ JR, MD on 05/10/22 1219 Ezetimibe (Ezetimibe) 10 Mg Tablet, 10 MG PO HS Prescribed by: ELZBIETA VELEZ JR, MD on 05/10/22 1219 Levothyroxine Sodium (Levothyroxine Sodium) 150 Mcg Tablet, 150 MCG PO HS, (Reported) Entered as Reported by: ALEJANDRA GARCIA on 02/20/16 1524 Nitroglycerin (Nitroglycerin) 0.4 Mg Tab.subl, 0.4 MG SL UD PRN for CHEST PAIN, (Reported) Entered as Reported by: JANINE DUNCAN on 05/10/22 1004 Nitroglycerin (Nitro-Dur 0.6 MG/HR) 0.6 Mg/Hour Patch.td24, 0.6 MG TD DAILY PRN for CHEST PAIN (ANGINA), (Reported) Entered as Reported by: JANINE DUNCAN on 05/10/22 1004 Omeprazole (Omeprazole) 40 Mg Capsule.dr, 40 MG PO HS, (Reported) Entered as Reported by: JANINE DUNCAN on 05/10/22 1005 Povidone (Soothe Hydration) 1.25 % Drops, 1-2 DROPS OU UD PRN for DRY EYES, (Reported) Entered as Reported by: JANINE DUNCAN on 03/01/22 1220 Rosuvastatin Calcium (Rosuvastatin Calcium) 20 Mg Tablet, 40 MG PO HS Prescribed by: ELZBIETA VELEZ JR, MD on 05/10/22 1219 Sulfamethoxazole/Trimethoprim (Bactrim Ds Tablet) 1 Each Tablet, 1 EACH PO BID Prescribed by: ROWENA MENDEZ on 07/20/22 1841 Warfarin Sodium (Warfarin Sodium) 5 Mg Tablet, 5 MG PO FRI,,FRI @HS, (Reported) Entered as Reported by: ALEJANDRA GARCIA on 02/20/16 1542 Warfarin Sodium (Warfarin Sodium) 5 Mg Tablet, 7.5 MG PO BAIN,,, @HS, (Reported) Entered as Reported by: JANINE DUNCAN on 07/17/20 1138 Review of Systems Review of Systems Constitutional: No chills, No malaise Respiratory: Denies Cough Cardiovascular: See HPI, Chest Pain Gastrointestinal: No Symptoms Reported Genitourinary: No Symptoms Reported Musculoskeletal: no symptoms reported Skin: no symptoms reported Psychiatric/Neurological: No Symptoms Reported Endocrine: No Symptoms Reported Past Pwssbys-Cdcrfw-Pdygqm Hx Immunizations Up To Date First/Initial COVID19 Vaccinat: Denies Past Medical History Surgery/Hospitalization HX: GERD; Chronic UTI's; Uterine Fibroids; OA; Chronic Abdominal pain; CAGE surgery neck; Neuropathy; Thyroidectomy; Asthma; Sleep Apnea; DVT Family Medical History Arthritis G8 SISTER Cardiovascular disease 03 FATHER Colon cancer 03 MOTHER Completed stroke 03 MOTHER Hypertension 03 MOTHER G8 BROTHER Myocardial infarction 03 MOTHER Thyroid disease G8 SISTER Physical Exam Vital Signs Vital Signs - First Documented 04/03/23 18:09 Temp 36.5 Pulse 82 Resp 16 B/P (MAP) 145/96 (112) Pulse Ox 93 O2 Delivery Room Air Capillary Refill : Height, Weight, BMI Height: '" Weight: lbs. oz. kg; 55.00 BMI Method: General Appearance: WD/WN, Obese Cardiovascular: Regular Rate, Rhythm, Normal Peripheral Pulses Gastrointestinal: Non Tender, Soft Extremity: Normal Capillary Refill, Normal Inspection, Normal Range of Motion Neurologic/Psychiatric: Alert, Oriented x3, No Motor/Sensory Deficits Skin: Normal Color, Warm/Dry Progress/Results/Core Measures Results/Orders Lab Results Laboratory Tests Test 04/03/23 18:14 04/03/23 18:19 Range/Units Urine Color YELLOW Urine Clarity SLIGHTLY CLOUDY Urine pH 6.0 5-9 Urine Specific [place] >=1.030 1.016-1.022 Urine Protein 1+ H NEGATIVE Urine Glucose (UA) NEGATIVE NEGATIVE Urine Ketones NEGATIVE NEGATIVE Urine Nitrite NEGATIVE NEGATIVE Urine Bilirubin NEGATIVE NEGATIVE Urine Urobilinogen 0.2 < = 1.0 MG/DL Urine Leukocyte Esterase NEGATIVE NEGATIVE Urine RBC (Auto) 2+ H NEGATIVE Urine RBC 5-10 H /HPF Urine WBC 10-25 H /HPF Urine Squamous Epithelial Cells >50 H /HPF Urine Crystals NONE /LPF Urine Bacteria LARGE H /HPF Urine Casts PRESENT /LPF Urine Hyaline Casts 10-25 H /LPF Urine Mucus NEGATIVE /LPF Urine Culture Indicated NO White Blood Count 10.0 4.3-11.0 10^3/uL Red Blood Count 4.37 3.80-5.11 10^6/uL Hemoglobin 12.6 11.5-16.0 g/dL Hematocrit 40 35-52 % Mean Corpuscular Volume 92 80-99 fL Mean Corpuscular Hemoglobin 29 25-34 pg Mean Corpuscular Hemoglobin Concent 31 L 32-36 g/dL Red Cell Distribution Width 15.3 H 10.0-14.5 % Platelet Count 221 130-400 10^3/uL Mean Platelet Volume 10.8 9.0-12.2 fL Immature Granulocyte % (Auto) 0 % Neutrophils (%) (Auto) 73 42-75 % Lymphocytes (%) (Auto) 20 12-44 % Monocytes (%) (Auto) 6 0-12 % Eosinophils (%) (Auto) 1 0-10 % Basophils (%) (Auto) 0 0-10 % Neutrophils # (Auto) 7.3 1.8-7.8 10^3/uL Lymphocytes # (Auto) 2.0 1.0-4.0 10^3/uL Monocytes # (Auto) 0.6 0.0-1.0 10^3/uL Eosinophils # (Auto) 0.1 0.0-0.3 10^3/uL Basophils # (Auto) 0.0 0.0-0.1 10^3/uL Immature Granulocyte # (Auto) 0.0 0.0-0.1 10^3/uL Sodium Level 135 135-145 MMOL/L Potassium Level 4.2 3.6-5.0 MMOL/L Chloride Level 99 98-107 MMOL/L Carbon Dioxide Level 23 21-32 MMOL/L Anion Gap 13 5-14 MMOL/L Blood Urea Nitrogen 8 7-18 MG/DL Creatinine 0.79 0.60-1.30 MG/DL Estimat Glomerular Filtration Rate 83 BUN/Creatinine Ratio 10 Glucose Level 245 H 70-105 MG/DL Calcium Level 9.1 8.5-10.1 MG/DL Corrected Calcium 9.3 8.5-10.1 MG/DL Magnesium Level 2.2 1.6-2.4 MG/DL Total Bilirubin 0.5 0.1-1.0 MG/DL Aspartate Amino Transf (AST/SGOT) 30 5-34 U/L Alanine Aminotransferase (ALT/SGPT) 21 0-55 U/L Alkaline Phosphatase 112 40-136 U/L Troponin I < 0.30 <0.30 NG/ML Total Protein 7.7 6.4-8.2 GM/DL Albumin 3.8 3.2-4.5 GM/DL My Orders Orders - ORLANDO MUHAMMADVOR L DO Cbc With Automated Diff (04/03/23 18:11) Comprehensive Metabolic Panel (04/03/23 18:11) Magnesium (04/03/23 18:11) Troponin I Fs (04/03/23 18:11) Ekg Tracing (04/03/23 18:11) Monitor-Rhythm Ecg Trace Only (04/03/23 18:11) Ketorolac Injection (Toradol Injection) (04/03/23 18:11) Chest Pa/Lat (2 View) (04/03/23 18:21) Urinalysis (04/03/23 18:29) Vital Signs/I&O 04/03/23 18:09 Temp 36.5 Pulse 82 Resp 16 B/P (MAP) 145/96 (112) Pulse Ox 93 O2 Delivery Room Air Progress Progress Note : Progress Note Patient's diagnostic studies were ordered reviewed and interpreted by me. Patient's labs were compared with her previous labs showed no acute changes. Patient is EKG was obtained and shows no acute changes when compared to previous labs. Patient with normal sinus rhythm heart rate 80 with nonspecific changes. Patient's chest x-ray was obtained and reviewed with initial interpretation negative by me with final interpretation per radiology report. Patient's pain has basically subsided is very minimal with Toradol. Discussed with him to keep the outpatient work-ups per their vulcanizing press operator. May try some anti-inflammatory as needed. Patient stable and discharged home. I did discuss and obtain history from both patient and her . Patient's morbidity and mortality is at increased risk due to her social determinants of health. Initial ECG Impression Date: Apr 03, 2023 Initial ECG Impression Time: 18:12 Initial ECG Rate: 80 Initial ECG Rhythm: Normal Sinus Initial ECG Comparisson: Unchanged (03/27/23) Diagnostic Imaging Diagonstic Imaging: Xray Plain Films/CT/US/NM/MRI: chest Comments Date of Exam:04/03/23 CHEST PA/LAT (2 VIEW) EXAMINATION: CHEST (PA AND LATERAL) CLINICAL INDICATION: No identified acute cardiopulmonary abnormality. COMPARISON: July 08, 2017. CT chest February 28, 2022. FINDINGS: There is cervical spine hardware. Heart size and mediastinal contours are unchanged. There is no identified pneumothorax. There is no large pleural effusion. There is no identified focal airspace consolidation. There is elevation of the left hemidiaphragm. Reviewed: Reviewed by Me, Reviewed/Discussed Departure Impression Primary Impression: Recurrent chest pain Disposition: HOME, SELF-CARE Condition: Stable Departure-Patient Inst. Referrals: ISADORA ARORA DO (PCP) Primary Care Physician Patient Instructions: Chest Pain, Adult ED Add. Discharge Instructions: Please keep your outpatient echo from Dr. Del Castillo's office. If symptoms increase in frequency please with your primary care provider and Dr. Del Castillo's office. GIGI MUHAMMAD DO Apr 03, 2023 18:09
[2023-04-03] MEDS ORDERED: KETOROLAC 30 MG/ML VIAL IVP STA (18:11)
[2023-04-03 18:21] LABS: BASOPHILS % (AUTO) 0 % (0-10); EOSINOPHILS # (AUTO) 0.1 10^3/uL (0.0-0.3); EOSINOPHILS % (AUTO) 1 % (0-10); HEMATOCRIT 40 % (35-52); HEMOGLOBIN 12.6 g/dL (11.5-16.0); LYMPHOCYTES % (AUTO) 20 % (12-44); MEAN CORPUSCULAR HEMOGLOBIN 29 pg (25-34); MEAN CORPUSCULAR HGB CONC 31 g/dL (32-36); MEAN CORPUSCULAR VOLUME 92 fL (80-99); MEAN PLATELET VOLUME 10.8 fL (9.0-12.2); MONOCYTES # (AUTO) 0.6 10^3/uL (0.0-1.0); MONOCYTES % (AUTO) 6 % (0-12); NEUTROPHILS # (AUTO) 7.3 10^3/uL (1.8-7.8); NEUTROPHILS % (AUTO) 73 % (42-75); PLATELET COUNT 221 10^3/uL (130-400)
[2023-04-03 18:32] LABS: BACTERIA,URINE LARGE /HPF; BILIRUBIN,URINE NEGATIVE (NEGATIVE); CLARITY,URINE SLIGHTLY CLOUDY; COLOR,URINE YELLOW; GLUCOSE, URINE (UA) NEGATIVE (NEGATIVE); KETONES,URINE NEGATIVE (NEGATIVE); LEUKOCYTE ESTERASE ,URINE NEGATIVE (NEGATIVE); NITRITE,URINE NEGATIVE (NEGATIVE); PROTEIN,URINE 1+ (NEGATIVE); SQUAMOUS EPITHELIAL CELL,UR >50 /HPF
[2023-04-03 18:42] LABS: ALANINE AMINOTRANSFERASE 21 U/L (0-55); ALBUMIN 3.8 GM/DL (3.2-4.5); ALKALINE PHOSPHATASE 112 U/L (40-136); BILIRUBIN,TOTAL 0.5 MG/DL (0.1-1.0); BUN/CREATININE RATIO 10; CALCIUM 9.1 MG/DL (8.5-10.1); CARBON DIOXIDE 23 MMOL/L (21-32); CHLORIDE 99 MMOL/L (98-107); CREATININE SERUM 0.79 MG/DL (0.60-1.30); GFR ESTIMATED 83; GLUCOSE 245 MG/DL (70-105); MAGNESIUM 2.2 MG/DL (1.6-2.4); POTASSIUM 4.2 MMOL/L (3.6-5.0); SODIUM 135 MMOL/L (135-145); TOTAL PROTEIN 7.7 GM/DL (6.4-8.2)
--- NOTE | 2023-04-03 18:44 | Diagnostic Imaging Report ---
EXAMINATION: CHEST (PA AND LATERAL) CLINICAL INDICATION: 62-year-old female, chest pain. COMPARISON: July 08, 2017. CT chest February 28, 2022. FINDINGS: There is cervical spine hardware. Heart size and mediastinal contours are unchanged. There is no identified pneumothorax. There is no large pleural effusion. There is no identified focal airspace consolidation. There is elevation of the left hemidiaphragm. IMPRESSION: 1. No identified acute cardiopulmonary abnormality. Dictated by: Dictated on workstation # [id number]
== END 2023-04-03 19:28 | disposition home or self-care (01) ==
LOC: EDUNIT# 18:01 → ER FS 18:02
DX: R07.89 Other chest pain (principal); E66.9 Obesity, unspecified; Z68.43 Body mass index [BMI] 50.0-59.9, adult; Z88.6 Allergy status to analgesic agent; Z28.310 Unvaccinated for COVID-19
CPT/HCPCS: 36415; 71046; 80053; 81000; 83735; 84484; 85025; 93005; 93041

== ENCOUNTER 2023-04-09 15:27 | Emergency (ER) | payer MEDICARE, MEDICAID ==
[~2023-04-09] VITALS: Ht 157 cm; Wt 140.0 kg
[2023-04-09 15:41] VITALS: BP 143/59
--- NOTE | 2023-04-09 15:53 | ED Head Injury ---
General Chief Complaint: Head/Cervical Problems Stated Complaint: FELL,HEADACHE,DIZZY,HIT HEAD Nursing Triage Note: Patient has presented to ER with cc of getting hit in the top of her head with a brick. Patient reports that 3 days ago she was sitting and the cat jump up on a shelf above her. The cat knocked the brick off of the shelf and it fell and hit her in the top of her head. She states that since then she has had a headache, feels dizzy, and her balance when standing feels off. She has taken tylenol for the pain. Source: patient Exam Limitations: no limitations History of Present Illness Date Seen by Provider: Apr 09, 2023 Time Seen by Provider: 15:31 Initial Comments 62-year-old female on warfarin coming in after her cat was on a shelf above her, and pushed off a brick onto her head. This occurred 3 days ago. She did not pass out and remembers everything. She has had a mild to moderate headache since then which she has taken Tylenol. Feels a little lightheaded as well. Otherwise denying any weakness, numbness, chest pain, shortness of breath, loss of vision, or any other concerns. Allergies and Home Medications Allergies Coded Allergies: Penicillins (Verified Allergy, Unknown, 01/19/23) adhesive tape (Verified Allergy, Unknown, 01/19/23) atorvastatin (Verified Allergy, Unknown, 01/19/23) bee venom protein (honey bee) (Verified Allergy, Unknown, 01/19/23) isosorbide (Verified Allergy, Unknown, 01/19/23) ketorolac (Verified Allergy, Unknown, 01/19/23) methylprednisolone (Verified Allergy, Unknown, 01/19/23) promethazine (Verified Allergy, Unknown, 01/19/23) venom-honey bee (Unverified Allergy, Unknown, 01/20/23) Uncoded Allergies: TAPE (Allergy, Unknown, 01/20/23) Patient Home Medication List Home Medication List Reviewed: Yes Acetaminophen (Acetaminophen) 500 Mg Tablet, 500-1,000 MG PO Q8H PRN for PAIN- MILD (1-4), (Reported) Entered as Reported by: ALEJANDRA GARCIA on 02/20/16 6488 Aspirin (Aspirin EC) 81 Mg Tablet.dr, 81 MG PO DAILY, (Reported) Entered as Reported by: JANINE DUNCAN on 05/10/22 1004 Cefuroxime Axetil (Cefuroxime) 250 Mg Tablet, 250 MG PO BID Prescribed by: BEE MACE on 01/02/23 1316 Diltiazem HCl (Diltiazem 24Hr ER) 120 Mg Cap.er.24h, 120 MG PO BID Prescribed by: ELZBIETA VELEZ JR, MD on 05/10/22 1219 Ezetimibe (Ezetimibe) 10 Mg Tablet, 10 MG PO HS Prescribed by: ELZBIETA VELEZ JR, MD on 05/10/22 1219 Levothyroxine Sodium (Levothyroxine Sodium) 150 Mcg Tablet, 150 MCG PO HS, (Reported) Entered as Reported by: ALEJANDRA GARCIA on 02/20/16 1524 Nitroglycerin (Nitroglycerin) 0.4 Mg Tab.subl, 0.4 MG SL UD PRN for CHEST PAIN, (Reported) Entered as Reported by: JANINE DUNCAN on 05/10/22 1004 Nitroglycerin (Nitro-Dur 0.6 MG/HR) 0.6 Mg/Hour Patch.td24, 0.6 MG TD DAILY PRN for CHEST PAIN (ANGINA), (Reported) Entered as Reported by: JANINE DUNCAN on 05/10/22 1004 Omeprazole (Omeprazole) 40 Mg Capsule.dr, 40 MG PO HS, (Reported) Entered as Reported by: JANINE DUNCAN on 05/10/22 1005 Povidone (Soothe Hydration) 1.25 % Drops, 1-2 DROPS OU UD PRN for DRY EYES, (Reported) Entered as Reported by: JANINE DUNCAN on 03/01/22 1220 Rosuvastatin Calcium (Rosuvastatin Calcium) 20 Mg Tablet, 40 MG PO HS Prescribed by: ELZBIETA VELEZ JR, MD on 05/10/22 1219 Sulfamethoxazole/Trimethoprim (Bactrim Ds Tablet) 1 Each Tablet, 1 EACH PO BID Prescribed by: ROWENA MENDEZ on 07/20/22 1841 Warfarin Sodium (Warfarin Sodium) 5 Mg Tablet, 5 MG PO WED,FR,SAT @HS, (Reported) Entered as Reported by: ALEJANDRA GARCIA on 02/20/16 1542 Warfarin Sodium (Warfarin Sodium) 5 Mg Tablet, 7.5 MG PO BAIN,MO,TU,TH @, (Reported) Entered as Reported by: JANINE DUNCAN on 07/17/20 1138 Review of Systems Review of Systems Constitutional: No fever Eyes: No Symptoms Reported Ears, Nose, Mouth, Throat: no symptoms reported Respiratory: no symptoms reported Cardiovascular: no symptoms reported Gastrointestinal: no symptoms reported Genitourinary: no symptoms reported Musculoskeletal: no symptoms reported Skin: no symptoms reported Psychiatric/Neurological: See HPI Past Kykidvp-Isnfvo-Qwreae Hx Patient Social History Tobacco Use?: No Use of E-Cig and/or Vaping dev: No Substance use?: No Alcohol Use?: No Immunizations Up To Date First/Initial COVID19 Vaccinat: Denies Second COVID19 Vaccination Festus: Denies Third COVID19 Vaccination Date: Denies Past Medical History Surgery/Hospitalization HX: GERD; Chronic UTI's; Uterine Fibroids; OA; Chronic Abdominal pain; CAGE surgery neck; Neuropathy; Thyroidectomy; Asthma; Sleep Apnea; DVT Family Medical History Arthritis G8 SISTER Cardiovascular disease 03 FATHER Colon cancer 03 MOTHER Completed stroke 03 MOTHER Hypertension 03 MOTHER G8 BROTHER Myocardial infarction 03 MOTHER Thyroid disease G8 SISTER Physical Exam Vital Signs Vital Signs - First Documented 04/09/23 15:41 Temp 36.2 Pulse 67 Resp 18 B/P (MAP) 143/59 (87) Pulse Ox 94 O2 Delivery Room Air Capillary Refill : Height, Weight, BMI Height: '" Weight: lbs. oz. kg; 56.00 BMI Method: General Appearance: WD/WN, no apparent distress HEENT: PERRL/EOMI, normal ENT inspection, pharynx normal Neck: non-tender, full range of motion, supple, normal inspection Cardiovascular: regular rate, rhythm Respiratory: chest non-tender, lungs clear, normal breath sounds, no respiratory distress, no accessory muscle use Gastrointestinal: normal bowel sounds, non tender, soft; No distended, No guarding, No rebound Back: normal inspection, no CVA tenderness, no vertebral tenderness Extremities: normal range of motion, non-tender, normal inspection, normal capillary refill Psychiatric: alert, oriented x 3 Crainal Nerves: normal hearing, normal speech, PERRL, other (Normal visual reyes and visual acuity) Motor/Sensory: no motor deficit, no sensory deficit Skin: normal color, warm/dry Yuniel Coma Score Best Eye Response: (4) Open Spontaneously Best Verbal Response: (5) Oriented Best Motor Response: (6) Obeys Commands Progress/Results/Core Measures Results/Orders My Orders Orders - ROWENA MENDEZ MD Ct Head Wo (04/09/23 15:49) Prochlorperazine Injection (Compazine In (04/09/23 16:15) Diphenhydramine Injection (Benadryl Inje (04/09/23 16:15) Vital Signs/I&O 04/09/23 15:41 Temp 36.2 Pulse 67 Resp 18 B/P (MAP) 143/59 (87) Pulse Ox 94 O2 Delivery Room Air Blood Pressure Mean: 87 Progress Progress Note : Progress Note 62-year-old female presenting due to headache after she was hit in the head by a brick 3 days ago. ABCs were intact, GCS 15, vital stable on presentation. Physical exam reassuring with no acute abnormalities, specifically she has an intact neuro exam. CT head ordered and interpreted by me showing no obvious intracranial hemorrhage. The radiology read was negative for any acute findings. The patient was given IM Compazine and Benadryl for her headache. Otherwise I believe she stable for discharge with outpatient follow-up. She was sent home with strict return precautions. Diagnostic Imaging Diagonstic Imaging: CT (head) Comments NAME: ISABEL HUNTLEY [facility] REC#: [id number] PT STATUS: REG ER : 1960 PHYSICIAN: ROWENA MENDEZ MD ADMIT DATE: 04/09/23/ER FS Draft Date of Exam:04/09/23 CT HEAD WO INDICATION: Traumatic injury to the head. Anticoagulated patient. TECHNIQUE: Routine non contrast-enhanced axial images were obtained from the skull base to the vertex. Auto Exposure Controls were utilized during the CT exam to meet ALARA standards for radiation dose reduction COMPARISON: 01/18/2023 FINDINGS: The ventricles and cortical sulci are stable in size and contour. There is no midline shift or mass-effect. No acute intra-axial hemorrhage is seen. There are no abnormal areas of increased or decreased density to suggest acute hemorrhage or edema. No extra-axial masses or collections are present. The bony calvarium is intact. The visualized paranasal sinuses are unremarkable. The mastoid air cells are clear. IMPRESSION: 1. No acute intracranial abnormality. No CT evidence of mass, acute infarct or intracranial hemorrhage. Dictated on workstation # [id number] Dict: 04/09/23 1608 Trans: 04/09/23 1610 [id number] Interpreted by: POLLY LEMON MD Electronically signed by: Departure Impression Primary Impression: Closed head injury Qualified Codes: S09.90XA - Unspecified injury of head, initial encounter Disposition: HOME, SELF-CARE Condition: Stable Departure-Patient Inst. Decision time for Depature: 16:30 Referrals: ISADORA ARORA DO (PCP/Family) Primary Care Physician Patient Instructions: Concussion, Adult ED Add. Discharge Instructions: Fortunately there is no bleed in your brain, but you do have a concussion. Symptoms of this can be headache, lightheadedness, dizziness, light sensitivity, and many other symptoms. This typically improves within a couple weeks. Continue to take Tylenol as needed for headache, and if you are not improving in the next week or so, please follow-up with your regular doctor. Work/School Note: Family Work Note Patient Received Medical Care In the Emergency Department On: Apr 09, 2023 Patient Will Be Able to Return to Work/School On: Apr 10, 2023 ROWENA MENDEZ MD Apr 09, 2023 15:53
--- NOTE | 2023-04-09 16:11 | Diagnostic Imaging Report ---
INDICATION: Traumatic injury to the head. Anticoagulated patient. TECHNIQUE: Routine non contrast-enhanced axial images were obtained from the skull base to the vertex. Auto Exposure Controls were utilized during the CT exam to meet ALARA standards for radiation dose reduction COMPARISON: 01/18/2023 FINDINGS: The ventricles and cortical sulci are stable in size and contour. There is no midline shift or mass-effect. No acute intra-axial hemorrhage is seen. There are no abnormal areas of increased or decreased density to suggest acute hemorrhage or edema. No extra-axial masses or collections are present. The bony calvarium is intact. The visualized paranasal sinuses are unremarkable. The mastoid air cells are clear. IMPRESSION: 1. No acute intracranial abnormality. No CT evidence of mass, acute infarct or intracranial hemorrhage. Dictated by: Dictated on workstation # [id number]
[2023-04-09] MEDS ORDERED: PROCHLORPERAZINE 10 MG/2ML INJ (COMPAZINE) IV ONE (16:15)
[2023-04-09] MEDS ORDERED: diphenhydrAMINE 50 MG/ML INJ (BENADRYL) IM ONE (16:15)
== END 2023-04-09 16:40 | disposition home or self-care (01) ==
LOC: EDUNIT# 15:27 → ER FS 15:29
DX: S09.90XA Unspecified injury of head, initial encounter (principal); Z79.01 Long term (current) use of anticoagulants; Z28.310 Unvaccinated for COVID-19; W20.8XXA Other cause of strike by thrown, projected or falling object, initial encounter
CPT/HCPCS: 70450; 99284

== ENCOUNTER 2023-04-19 16:02 | Emergency (ER) | payer MEDICARE, MEDICAID ==
[~2023-04-19] VITALS: Ht 157.4 cm; Wt 140.0 kg
[2023-04-19] MEDS ORDERED: ONDANSETRON 4 MG (ZOFRAN) ORAL DISSOLVE TAB SL STA (16:55)
--- NOTE | 2023-04-19 17:04 | ED Head Injury ---
General Chief Complaint: Head/Cervical Problems Stated Complaint: CONCUSION Nursing Triage Note: patient states she was "hit in the head with a brick by a cat" 2 weeks ago and diagnosed with a concussion at [facility]. was told if symptoms persist to return to the ED. today presents with c/o headache, dizziness and increased shortness of breath. Source: patient Exam Limitations: no limitations History of Present Illness Date Seen by Provider: Apr 19, 2023 Time Seen by Provider: 16:36 Initial Comments Here with report of head injury approximately 2 weeks ago. Seen at [place] at the time had CT of her head as she is on warfarin and is anticoagulated. No intracranial hemorrhage noted at that time per the patient and family. States that she is still having difficulty with concentration, balance, headache and feeling foggy of thought. She is eating and drinking okay and denies upper respiratory symptoms, fever or other systemic issues. Does have persistent nausea. She does not have nausea medicine at home. The initial accident was the result of a brick falling off the top of her head forward and hitting her in the head. She did not suffer a laceration at that time. Occurred: last week Severity: moderate Method of Injury: direct blow Loss of Consciousness: no loss of consciousness Associated Systoms: Nausea/Vomiting Allergies and Home Medications Allergies Coded Allergies: Penicillins (Verified Allergy, Unknown, 04/19/23) adhesive tape (Verified Allergy, Unknown, 04/19/23) atorvastatin (Verified Allergy, Unknown, 04/19/23) bee venom protein (honey bee) (Verified Allergy, Unknown, 04/19/23) isosorbide (Verified Allergy, Unknown, 04/19/23) ketorolac (Verified Allergy, Unknown, 04/19/23) methylprednisolone (Verified Allergy, Unknown, 04/19/23) promethazine (Verified Allergy, Unknown, 04/19/23) venom-honey bee (Unverified Allergy, Unknown, 04/19/23) Uncoded Allergies: TAPE (Allergy, Unknown, 01/20/23) Patient Home Medication List Home Medication List Reviewed: Yes Acetaminophen (Acetaminophen) 500 Mg Tablet, 500-1,000 MG PO Q8H PRN for PAIN-GA LD (1-4), (Reported) Entered as Reported by: ALEJANDRA GARCIA on 02/20/16 5575 Aspirin (Aspirin EC) 81 Mg Tablet.dr, 81 MG PO DAILY, (Reported) Entered as Reported by: JANINE DUNCAN on 05/10/22 1004 Cefuroxime Axetil (Cefuroxime) 250 Mg Tablet, 250 MG PO BID Prescribed by: BEE MACE on 01/02/23 1316 Diltiazem HCl (Diltiazem 24Hr ER) 120 Mg Cap.er.24h, 120 MG PO BID Prescribed by: ELZBIETA VELEZ JR, MD on 05/10/22 1219 Ezetimibe (Ezetimibe) 10 Mg Tablet, 10 MG PO HS Prescribed by: ELZBIETA VELEZ JR, MD on 05/10/22 1219 Levothyroxine Sodium (Levothyroxine Sodium) 150 Mcg Tablet, 150 MCG PO HS, (Reported) Entered as Reported by: ALEJANDRA GARCIA on 02/20/16 1524 Nitroglycerin (Nitroglycerin) 0.4 Mg Tab.subl, 0.4 MG SL UD PRN for CHEST PAIN, (Reported) Entered as Reported by: JANINE DUNCAN on 05/10/22 1004 Nitroglycerin (Nitro-Dur 0.6 MG/HR) 0.6 Mg/Hour Patch.td24, 0.6 MG TD DAILY PRN for CHEST PAIN (ANGINA), (Reported) Entered as Reported by: JANINE DUNCAN on 05/10/22 1004 Omeprazole (Omeprazole) 40 Mg Capsule.dr, 40 MG PO HS, (Reported) Entered as Reported by: JANINE DUNCAN on 05/10/22 1005 Povidone (Soothe Hydration) 1.25 % Drops, 1-2 DROPS OU UD PRN for DRY EYES, (Reported) Entered as Reported by: JANINE DUNCAN on 03/01/22 1220 Rosuvastatin Calcium (Rosuvastatin Calcium) 20 Mg Tablet, 40 MG PO HS Prescribed by: ELZBIETA VELEZ JR, MD on 05/10/22 1219 Sulfamethoxazole/Trimethoprim (Bactrim Ds Tablet) 1 Each Tablet, 1 EACH PO BID Prescribed by: ROWENA MENDEZ on 07/20/22 1841 Warfarin Sodium (Warfarin Sodium) 5 Mg Tablet, 5 MG PO WED,FR,SAT @HS, (Reported) Entered as Reported by: ALEJANDRA GARCIA on 02/20/16 1542 Warfarin Sodium (Warfarin Sodium) 5 Mg Tablet, 7.5 MG PO BAIN,MO,TU,TH @, (Repor perla) Entered as Reported by: JANINE DUNCAN on 07/17/20 1138 Review of Systems Review of Systems Constitutional: see HPI; No fever Eyes: Blurred Vision Ears, Nose, Mouth, Throat: no symptoms reported Respiratory: No cough; short of breath Gastrointestinal: nausea; No vomiting Skin: No change in color Psychiatric/Neurological: Headache, Other (Off balance) Past Xvfulso-Uudmqs-Nigddb Hx Patient Social History Tobacco Use?: No Use of E-Cig and/or Vaping dev: No Substance use?: No Alcohol Use?: No Pt feels they are or have been: No Immunizations Up To Date Influenza Vaccine Up-to-Date: No; Not Current First/Initial COVID19 Vaccinat: denies Second COVID19 Vaccination Festus: Denies Third COVID19 Vaccination Date: Denies Past Medical History Surgery/Hospitalization HX: GERD; Chronic UTI's; Uterine Fibroids; OA; Chronic Abdominal pain; Neuropathy; Thyroidectomy; Asthma; Sleep Apnea; DVT "four heart stents", appy, CAGE surgery neck Surgeries: Yes Appendectomy, Coronary Stent Respiratory: Yes COPD Cardiac: Yes Coronary Artery Disease, Hypertension Genitourinary: Yes Kidney Infection, Bladder Infection Endocrine: Yes Hypothyroidsim Family Medical History Reviewed Nursing Family Hx Arthritis G8 SISTER Cardiovascular disease 03 FATHER Colon cancer 03 MOTHER Completed stroke 03 MOTHER Hypertension 03 MOTHER G8 BROTHER Myocardial infarction 03 MOTHER Thyroid disease G8 SISTER No Pertinent Family Hx Physical Exam Vital Signs Vital Signs - First Documented 04/19/23 16:14 Temp 36.0 Pulse 79 Resp 16 B/P (MAP) 133/70 (91) Pulse Ox 96 O2 Delivery Room Air Capillary Refill : Less Than 3 Seconds Height, Weight, BMI Height: '" Weight: lbs. oz. kg; 56.00 BMI Method: General Appearance: WD/WN, no apparent distress, obese HEENT: PERRL/EOMI, pharynx normal Neck: non-tender, full range of motion, supple, normal inspection Cardiovascular: regular rate, rhythm, no murmur Respiratory: lungs clear, normal breath sounds Psychiatric: alert, oriented x 3 Crainal Nerves: normal hearing, normal speech, PERRL Skin: normal color, warm/dry Yuniel Coma Score Best Eye Response: (4) Open Spontaneously Best Verbal Response: (5) Oriented Best Motor Response: (6) Obeys Commands Progress/Results/Core Measures Results/Orders Lab Results Laboratory Tests Test 04/19/23 17:08 Range/Units White Blood Count 8.4 4.3-11.0 10^3/uL Red Blood Count 4.55 3.80-5.11 10^6/uL Hemoglobin 13.2 11.5-16.0 g/dL Hematocrit 42 35-52 % Mean Corpuscular Volume 93 80-99 fL Mean Corpuscular Hemoglobin 29 25-34 pg Mean Corpuscular Hemoglobin Concent 31 L 32-36 g/dL Red Cell Distribution Width 15.2 H 10.0-14.5 % Platelet Count 197 130-400 10^3/uL Mean Platelet Volume 10.8 9.0-12.2 fL Immature Granulocyte % (Auto) 0 % Neutrophils (%) (Auto) 80 H 42-75 % Lymphocytes (%) (Auto) 10 L 12-44 % Monocytes (%) (Auto) 8 0-12 % Eosinophils (%) (Auto) 1 0-10 % Basophils (%) (Auto) 0 0-10 % Neutrophils # (Auto) 6.8 1.8-7.8 10^3/uL Lymphocytes # (Auto) 0.9 L 1.0-4.0 10^3/uL Monocytes # (Auto) 0.7 0.0-1.0 10^3/uL Eosinophils # (Auto) 0.1 0.0-0.3 10^3/uL Basophils # (Auto) 0.0 0.0-0.1 10^3/uL Immature Granulocyte # (Auto) 0.0 0.0-0.1 10^3/uL Prothrombin Time 28.5 H 12.2-14.7 SEC INR Comment 2.7 H 0.8-1.4 Sodium Level 139 135-145 MMOL/L Potassium Level 4.3 3.6-5.0 MMOL/L Chloride Level 105 98-107 MMOL/L Carbon Dioxide Level 23 21-32 MMOL/L Anion Gap 11 5-14 MMOL/L Blood Urea Nitrogen 14 7-18 MG/DL Creatinine 0.90 0.60-1.30 MG/DL Estimat Glomerular Filtration Rate 71 BUN/Creatinine Ratio 16 Glucose Level 111 H 70-105 MG/DL Calcium Level 9.2 8.5-10.1 MG/DL Corrected Calcium 9.2 8.5-10.1 MG/DL Total Bilirubin 0.4 0.1-1.0 MG/DL Aspartate Amino Transf (AST/SGOT) 26 5-34 U/L Alanine Aminotransferase (ALT/SGPT) 23 0-55 U/L Alkaline Phosphatase 99 40-136 U/L Total Protein 8.0 6.4-8.2 GM/DL Albumin 4.0 3.2-4.5 GM/DL My Orders Orders - BEE MACE MD Cbc With Automated Diff (04/19/23 16:55) Comprehensive Metabolic Panel (04/19/23 16:55) Protime With Inr (04/19/23 16:55) Ondansetron Oral Dissolve Tab (Zofran (04/19/23 16:55) Ct Head Wo (04/19/23 16:55) Vital Signs/I&O 04/19/23 16:14 Temp 36.0 Pulse 79 Resp 16 B/P (MAP) 133/70 (91) Pulse Ox 96 O2 Delivery Room Air Blood Pressure Mean: 91 Progress Progress Note : Progress Note Seen and evaluated. Given the patient's history of anticoagulation use with warfarin, increasing symptoms of head injury wound history. Here, we will go ahead and repeat CT scan today. We will check PT/INR and basic labs given her dizziness. Labs to be reevaluated include CBC and CMP. This is all discussed with patient and family who agree with plan. Monitor patient. Differential diagnosis includes persistent concussion, electrolyte abnormality, supratherapeutic INR, intracranial hemorrhage. 1800: CT reviewed by me and shows no acute intracranial hemorrhage on my interpretation. Radiology report reviewed and agrees. CBC reviewed and shows no acute findings. CMP likewise is grossly normal. Patient has therapeutic INR on coag evaluation. No indication for admission or further imaging or studies. Discharged home with return precautions. Patient verbalized understanding instructions and agreement with plan. Diagnostic Imaging Diagonstic Imaging: CT Plain Films/CT/US/NM/MRI: head Comments [facility] [place] NAME: ISABEL HUNTLEY [facility]ed[facility] REC#: [id number] PT STATUS: REG ER : 1960 PHYSICIAN: BEE MACE MD ADMIT DATE: 04/19/23/ER Signed Date of Exam:04/19/23 CT HEAD WO PROCEDURE: CT head without contrast. TECHNIQUE: Multiple contiguous axial images were obtained through the brain without the use of intravenous contrast. Auto Exposure Controls were utilized during the CT exam to meet ALARA standards for radiation dose reduction. INDICATION: Head injury while on blood thinners. FINDINGS: The ventricles and sulci are within normal limits. There is no hydrocephalus or cerebral edema. There is no midline shift or mass effect. There is no intracranial mass, hemorrhage or extra-axial fluid collection. The visualized paranasal sinuses and mastoid air cells are clear. There is no regional area of decreased attenuation appreciated to suggest an acute CVA. IMPRESSION: No acute intracranial abnormality. Dictated by: Dictated on workstation # [id number] Dict: 04/19/23 1716 Trans: 04/19/23 1734 [id number] Interpreted by: KYRIE TY MD Electronically signed by: KYRIE TY MD 04/19/23 1734 Departure Impression Primary Impression: Brain concussion Qualified Codes: S06.0X0D - Concussion without loss of consciousness, subsequent encounter Disposition: HOME, SELF-CARE Condition: Stable Departure-Patient Inst. Decision time for Depature: 18:01 Referrals: ISADORA ARORA DO (PCP/Family) Primary Care Physician Patient Instructions: Concussion, Adult ED Add. Discharge Instructions: All discharge instructions reviewed with patient and/or family. Voiced understanding. You may continue Tylenol/acetaminophen 1000 mg every 6 hours as needed for pain. Take other medications as directed. You should get plenty of rest over the next several days. Follow-up with your doctor this week for recheck and further evaluation. Return for worse pain, fever, vomiting, weakness, breathing problems or other concerns as needed. Your INR today was 2.7. Scripts Ondansetron (Ondansetron Odt) 4 Mg Tab.rapdis 4 MG PO Q6H PRN for NAUSEA/VOMITING, #12 TAB 0 Refills Prov: BEE MACE MD 04/19/23 BEE MAEC MD Apr 19, 2023 17:04
[2023-04-19 17:11] LABS: BASOPHILS % (AUTO) 0 % (0-10); EOSINOPHILS # (AUTO) 0.1 10^3/uL (0.0-0.3); EOSINOPHILS % (AUTO) 1 % (0-10); HEMATOCRIT 42 % (35-52); HEMOGLOBIN 13.2 g/dL (11.5-16.0); LYMPHOCYTES # (AUTO) 0.9 10^3/uL (1.0-4.0); LYMPHOCYTES % (AUTO) 10 % (12-44); MEAN CORPUSCULAR HEMOGLOBIN 29 pg (25-34); MEAN CORPUSCULAR HGB CONC 31 g/dL (32-36); MEAN CORPUSCULAR VOLUME 93 fL (80-99); MEAN PLATELET VOLUME 10.8 fL (9.0-12.2); MONOCYTES # (AUTO) 0.7 10^3/uL (0.0-1.0); MONOCYTES % (AUTO) 8 % (0-12); NEUTROPHILS # (AUTO) 6.8 10^3/uL (1.8-7.8); NEUTROPHILS % (AUTO) 80 % (42-75); PLATELET COUNT 197 10^3/uL (130-400); WHITE BLOOD COUNT 8.4 10^3/uL (4.3-11.0)
[2023-04-19 17:24] LABS: POTASSIUM 4.3 MMOL/L (3.6-5.0)
[2023-04-19 17:25] LABS: INR 2.7 (0.8-1.4); PROTHROMBIN TIME PATIENT 28.5 SEC (12.2-14.7)
[2023-04-19 17:26] LABS: CALCIUM 9.2 MG/DL (8.5-10.1)
[2023-04-19 17:29] LABS: BILIRUBIN,TOTAL 0.4 MG/DL (0.1-1.0)
[2023-04-19 17:30] LABS: CREATININE SERUM 0.9 MG/DL (0.60-1.30)
--- NOTE | 2023-04-19 17:31 | Diagnostic Imaging Report ---
PROCEDURE: CT head without contrast. TECHNIQUE: Multiple contiguous axial images were obtained through the brain without the use of intravenous contrast. Auto Exposure Controls were utilized during the CT exam to meet ALARA standards for radiation dose reduction. INDICATION: Head injury while on blood thinners. FINDINGS: The ventricles and sulci are within normal limits. There is no hydrocephalus or cerebral edema. There is no midline shift or mass effect. There is no intracranial mass, hemorrhage or extra-axial fluid collection. The visualized paranasal sinuses and mastoid air cells are clear. There is no regional area of decreased attenuation appreciated to suggest an acute CVA. IMPRESSION: No acute intracranial abnormality. Dictated by: Dictated on workstation # [id number]
[2023-04-19] MEDS ORDERED: ONDA4TAB11 PO (18:02)
[2023-04-19 18:10] VITALS: BP 122/72
== END 2023-04-19 18:11 | disposition home or self-care (01) ==
LOC: EDUNIT# 16:02 → ER 16:05
DX: S06.0X0A Concussion without loss of consciousness, initial encounter (principal); E66.9 Obesity, unspecified; Z68.43 Body mass index [BMI] 50.0-59.9, adult; Z79.01 Long term (current) use of anticoagulants; Z28.310 Unvaccinated for COVID-19; W20.8XXA Other cause of strike by thrown, projected or falling object, initial encounter
CPT/HCPCS: 36415; 70450; 80053; 85025; 85610

== ENCOUNTER 2023-05-31 16:32 | Emergency (ER) | payer MEDICARE, MEDICAID ==
[~2023-05-31 16:32] MED LIST changes: +ONDA4TAB11 PO; -ROSU20TA32 PO; +ROSU20TA73 PO
[2023-05-31] MEDS ORDERED: KETOROLAC 15 MG/ML VIAL IM STA (16:43)
[2023-05-31] MEDS ORDERED: ONDANSETRON 4 MG (ZOFRAN) ORAL DISSOLVE TAB PO STA (16:43)
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
--- NOTE | 2023-05-31 17:16 | Diagnostic Imaging Report ---
EXAMINATION: CT head without contrast. TECHNIQUE: Multiple contiguous axial images were obtained through the brain without the use of intravenous contrast. All CT scans use one or more of the following dose optimizing techniques: automated exposure control, MA and/or KvP adjustment based on patient size and exam type or iterative reconstruction. HISTORY: Right-sided headache. COMPARISON: 04/19/2023. FINDINGS: The ventricles and sulci are normal. No abnormal attenuation of brain parenchyma is present. No acute intracranial hemorrhage or abnormal extra-axial fluid collection is present. No hyperdense vessel. The calvarium is intact. The mastoid air cells are clear. The visualized paranasal sinuses are clear. The orbits are normal. IMPRESSION: No acute intracranial abnormality. Dictated by: Dictated on workstation # [id number]
[2023-05-31] MEDS ORDERED: ONDA4TAB11 PO (17:26)
[2023-05-31 17:27] VITALS: BP 139/80
== END 2023-05-31 17:27 | disposition home or self-care (01) ==
LOC: EDUNIT# 16:32 → ER FS 16:34
DX: G44.309 Post-traumatic headache, unspecified, not intractable (principal); F07.81 Postconcussional syndrome; E66.9 Obesity, unspecified; Z79.01 Long term (current) use of anticoagulants; Z28.310 Unvaccinated for COVID-19; Z68.43 Body mass index [BMI] 50.0-59.9, adult
CPT/HCPCS: 70450; 96372

== ENCOUNTER 2023-06-09 08:16 | Emergency (ER) | payer MEDICARE, MEDICAID ==
[~2023-06-09] VITALS: Ht 157.5 cm; Wt 138.3 kg
--- NOTE | 2023-06-09 08:42 | ED Fall/Injury ---
General Chief Complaint: Trauma-Non Activation Stated Complaint: HEAD INJ; BLURRY VISION Nursing Triage Note: PT TO ROOM FSOF VIA PERSONAL W/C WITH C/O HEADACHE AFTER FALLING AND HITTING LEFT SIDE HEAD ON DOOR. PT REPORTS BLURRY AND DOUBLE VISION AND NAUSEA. PT DENIES LOC. Source: patient Exam Limitations: no limitations History of Present Illness Date Seen by Provider: Jun 09, 2023 Time Seen by Provider: 08:26 Initial Comments 63-year-old female patient with history of coronary artery disease a status post stent placement, COPD, hypertension, hypothyroidism, frequent emergency room visits presented POV with her with complaining of a fall. Patient states that she had an accidental fall from a standing position because of loss of balance and hit her left side of her head against a door file. Patient den ies loss of consciousness and other injuries. Pain patient rated her pain 9/10 and complaining of double and blurred vision vision and nausea. Patient denies new focal neurodeficit, neck pain, back pain, abdominal pain, chest pain and shortness of breath. Patient stated she did not take any medication after her fall and did not take her home medication yet because she did not eat anything. Patient currently taking Coumadin and her last INR check was about 6 weeks ago and she is due for INR check tomorrow. Patient denies bleeding. Location Injury Occurred: Home Occurred: this morning Injuries/Pain Location: head Context: lost balance Loss of Consciousness: no loss of consciousness Associated Symptoms (Fall): Headache, Vision Changes Allergies and Home Medications Allergies Coded Allergies: Penicillins (Verified Allergy, Unknown, 04/19/23) adhesive tape (Verified Allergy, Unknown, 04/19/23) atorvastatin (Verified Allergy, Unknown, 04/19/23) bee venom protein (honey bee) (Verified Allergy, Unknown, 04/19/23) isosorbide (Verified Allergy, Unknown, 04/19/23) ketorolac (Verified Allergy, Unknown, 04/19/23) methylprednisolone (Verified Allergy, Unknown, 04/19/23) promethazine (Verified Allergy, Unknown, 04/19/23) venom-honey bee (Unverified Allergy, Unknown, 04/19/23) Uncoded Allergies: TAPE (Allergy, Unknown, 01/20/23) Patient Home Medication List Home Medication List Reviewed: Yes Acetaminophen (Acetaminophen) 500 Mg Tablet, 500-1,000 MG PO Q8H PRN for PAIN-MILD (1-4), (Reported) Entered as Reported by: ALEJANDRA GARCIA on 02/20/16 1558 Aspirin (Aspirin EC) 81 Mg Tablet.dr, 81 MG PO DAILY, (Reported) Entered as Reported by: JANINE DUNCAN on 05/10/22 1004 Cefuroxime Axetil (Cefuroxime) 250 Mg Tablet, 250 MG PO BID Prescribed by: BEE MACE on 01/02/23 1316 Diltiazem HCl (Diltiazem 24Hr ER) 120 Mg Cap.er.24h, 120 MG PO BID Prescribed by: ELZBIETA VELEZ JR, MD on 05/10/22 1219 Ezetimibe (Ezetimibe) 10 Mg Tablet, 10 MG PO HS Prescribed by: ELZBIETA VELEZ JR, MD on 05/10/22 1219 Levothyroxine Sodium (Levothyroxine Sodium) 150 Mcg Tablet, 150 MCG PO HS, (Reported) Entered as Reported by: ALEJANDRA GARCIA on 02/20/16 1524 Nitroglycerin (Nitroglycerin) 0.4 Mg Tab.subl, 0.4 MG SL UD PRN for CHEST PAIN, (Reported) Entered as Reported by: JANINE DUNCAN on 05/10/22 1004 Nitroglycerin (Nitro-Dur 0.6 MG/HR) 0.6 Mg/Hour Patch.td24, 0.6 MG TD DAILY PRN for CHEST PAIN (ANGINA), (Reported) Entered as Reported by: JANINE DUNCAN on 05/10/22 1004 Omeprazole (Omeprazole) 40 Mg Capsule.dr, 40 MG PO HS, (Reported) Entered as Reported by: JANINE DUNCAN on 05/10/22 1005 Ondansetron (Ondansetron Odt) 4 Mg Tab.rapdis, 4 MG PO Q6H PRN for NAUSEA/VOMITING Prescribed by: TESSY ABERNATHY on 05/31/23 1726 Povidone (Soothe Hydration) 1.25 % Drops, 1-2 DROPS OU UD PRN for DRY EYES, ( Reported) Entered as Reported by: JANINE DUNCAN on 03/01/22 1220 Rosuvastatin Calcium (Rosuvastatin Calcium) 20 Mg Tablet, 40 MG PO HS Prescribed by: ELZBIETA VELEZ JR, MD on 05/10/22 1219 Sulfamethoxazole/Trimethoprim (Bactrim Ds Tablet) 1 Each Tablet, 1 EACH PO BID Prescribed by: ROWENA MENDEZ on 07/20/22 1841 Warfarin Sodium (Warfarin Sodium) 5 Mg Tablet, 5 MG PO FRI,,SAT @HS, (Reported) Entered as Reported by: ALEJANDRA GARCIA on 02/20/16 1542 Warfarin Sodium (Warfarin Sodium) 5 Mg Tablet, 7.5 MG PO BAIN,MO,,TH @HS, (Reported) Entered as Reported by: JANINE DUNCAN on 07/17/20 1138 Review of Systems Review of Systems Constitutional: no symptoms reported Eyes: See HPI Ears, Nose, Mouth, Throat: no symptoms reported Respiratory: no symptoms reported Cardiovascular: no symptoms reported Gastrointestinal: see HPI Genitourinary: no symptoms reported Musculoskeletal: no symptoms reported Skin: no symptoms reported Psychiatric/Neurological: No Symptoms Reported All Other Systems Reviewed Negative Unless Noted: Yes Past Ylzkqqj-Anmlxu-Locray Hx Patient Social History Tobacco Use?: No Smoking Status: Never a Smoker Smokeless Tobacco Frequency: Never a User Use of E-Cig and/or Vaping dev: No Use of E-Cig and/or Vaping Haim: Never a User Substance use?: No Alcohol Use?: No Pt feels they are or have been: No Immunizations Up To Date First/Initial COVID19 Vaccinat: denies Second COVID19 Vaccination Festus: denies Third COVID19 Vaccination Date: denies Past Medical History Surgery/Hospitalization HX: GERD; Chronic UTI's; Uterine Fibroids; OA; Chronic Abdominal pain; Neuropathy; Thyroidectomy; Asthma; Sleep Apnea; DVT "four heart stents", appy, CAGE surgery neck Surgeries: Yes Appendectomy, Coronary Stent Respiratory: Yes COPD Cardiac: Yes Coronary Artery Disease, Hypertension Genitourinary: Yes Kidney Infection, Bladder Infection Endocrine: Yes Hypothyroidsim Family Medical History Arthritis G8 SISTER Cardiovascular disease 03 FATHER Colon cancer 03 MOTHER Completed stroke 03 MOTHER Hypertension 03 MOTHER G8 BROTHER Myocardial infarction 03 MOTHER Thyroid disease G8 SISTER No Pertinent Family Hx Physical Exam Vital Signs Vital Signs - First Documented 06/09/23 08:21 Temp 36.7 Pulse 63 Resp 17 B/P (MAP) 134/85 (101) O2 Delivery Room Air Capillary Refill : Less Than 3 Seconds Height, Weight, BMI Height: '" Weight: lbs. oz. 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, no motor/sensory deficits Skin: normal color, warm/dry Parker Coma Score Best Eye Response: (4) Open Spontaneously Best Verbal Response: (5) Oriented Best Motor Response: (6) Obeys Commands Yuniel Total: 15 Progress/Results/Core Measures Results/Orders Lab Results Laboratory Tests Test 06/09/23 08:39 Range/Units Prothrombin Time 18.8 H 12.2-14.7 SEC INR Comment 1.5 H 0.8-1.4 My Orders Orders - MARLON LANDRUM MD Ct Head Wo (06/09/23 08:31) Protime With Inr (06/09/23 08:31) Vital Signs/I&O 06/09/23 08:21 Temp 36.7 Pulse 63 Resp 17 B/P (MAP) 134/85 (101) O2 Delivery Room Air Blood Pressure Mean: 101 Progress Progress Note : Progress Note 63-year-old female patient with frequent ER visit and complaining of a fall without loss of consciousness. Patient complaining of double vision but was able to count fingers without problem. Physical exam was unremarkable except for morbid obesity. CT head interpreted by radiologist and reviewed by me and did not show acute finding. 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 Patient advised for fall prevention. Patient did not want to take pain medication in ER and stated she plan to take Tylenol at home. Patient and her informed about test results and plan of care and needs to follow-up and all questions was addressed. Diagnostic Imaging Diagonstic Imaging: CT Plain Films/CT/US/NM/MRI: head Comments CT head interpreted by radiologist and reviewed by me and showed no acute finding. [facility] [place] NAME: ISABEL HUNTLEY [facility] REC#: [id number] PT STATUS: REG ER : 1960 PHYSICIAN: MARLON LANDRUM MD ADMIT DATE: 06/09/23/ER FS Draft Date of Exam:06/09/23 CT HEAD WO CLINICAL INDICATIONS: Patient with headache after fall and hitting left side of head on door. Patient reports blurry and double vision and nausea. Exam: Axial CT scan of the brain without IV contrast with coronal and sagittal reformatted images. Auto Exposure Controls were utilized during the CT exam to meet ALARA standards for radiation dose reduction. Comparison: Head CT without contrast dated 05/31/2023. Findings: There is no evidence of acute cerebral infarct, intracranial hemorrhage, or gross mass effect. The brain parenchymal volume appears appropriate for patient's age. There is normal higginbotham-white matter distinction. There is no significant midline shift or herniation. There is no evidence of hydrocephalus. The basal cisterns are unremarkable. The skull, extracranial soft tissue, and orbits are unremarkable. The paranasal sinuses are unremarkable. Temporal bones show no significant abnormality. Impression: There is no evidence of acute intracranial process. There is no skull fracture. Dictated on workstation # [id number] Dict: 06/09/23 0847 Trans: 06/09/23 0851 [facility] [id number] Interpreted by: DESHAWN PATTEN MD Electronically signed by: Departure Impression Primary Impression: Fall at home Qualified Codes: W19.XXXA - Unspecified fall, initial encounter; Y92.009 - Unspecified place in unspecified non-institutional (private) residence as the place of occurrence of the external cause Additional Impressions: Anticoagulated on warfarin Head injury due to trauma Qualified Codes: S09.90XD - Unspecified injury of head, subsequent encounter Disposition: 01 HOME, SELF-CARE Condition: Stable Departure-Patient Inst. Decision time for Depature: 09:07 Referrals: TITO BARBER MD (PCP) Primary Care Physician Patient Instructions: Taking medicines for blood clots, Preventing Falls ED, Head injury in adults Add. Discharge Instructions: Continue home medication Take Tylenol as needed for pain Follow-up with your physician in 1 or 2 days regarding INR of 1.5 and PT of 18.8 for adjustment the dose of your Coumadin Return to ER as needed All discharge instructions reviewed with patient and/or family. Voiced understanding. MARLON LANDRUM MD Jun 09, 2023 08:42
--- NOTE | 2023-06-09 08:51 | Diagnostic Imaging Report ---
CLINICAL INDICATIONS: Patient with headache after fall and hitting left side of head on door. Patient reports blurry and double vision and nausea. Exam: Axial CT scan of the brain without IV contrast with coronal and sagittal reformatted images. Auto Exposure Controls were utilized during the CT exam to meet ALARA standards for radiation dose reduction. Comparison: Head CT without contrast dated 05/31/2023. Findings: There is no evidence of acute cerebral infarct, intracranial hemorrhage, or gross mass effect. The brain parenchymal volume appears appropriate for patient's age. There is normal higginbotham-white matter distinction. There is no significant midline shift or herniation. There is no evidence of hydrocephalus. The basal cisterns are unremarkable. The skull, extracranial soft tissue, and orbits are unremarkable. The paranasal sinuses are unremarkable. Temporal bones show no significant abnormality. Impression: There is no evidence of acute intracranial process. There is no skull fracture. Dictated by: Dictated on workstation # [id number]
[2023-06-09 08:59] LABS: INR 1.5 (0.8-1.4); PROTHROMBIN TIME PATIENT 18.8 SEC (12.2-14.7)
[2023-06-09 09:11] VITALS: BP 133/72
== END 2023-06-09 09:11 | disposition home or self-care (01) ==
LOC: EDUNIT# 08:16 → ER FS 08:17
DX: S09.90XA Unspecified injury of head, initial encounter (principal); I25.10 Atherosclerotic heart disease of native coronary artery without angina pectoris; E66.01 Morbid (severe) obesity due to excess calories; Z86.718 Personal history of other venous thrombosis and embolism; Z28.310 Unvaccinated for COVID-19; Z68.43 Body mass index [BMI] 50.0-59.9, adult; W18.30XA Fall on same level, unspecified, initial encounter; W22.8XXA Striking against or struck by other objects, initial encounter; Y92.009 Unspecified place in unspecified non-institutional (private) residence as the place of occurrence of the external cause
CPT/HCPCS: 36415; 70450; 85610

== ENCOUNTER 2023-06-28 21:18 | Emergency (ER) | payer MEDICARE, MEDICAID ==
[~2023-06-28] VITALS: Ht 157.4 cm; Wt 138.3 kg
--- NOTE | 2023-06-28 21:31 | ED General ---
General Stated Complaint: INR History of Present Illness Date Seen by Provider: Jun 28, 2023 Time Seen by Provider: 21:25 Initial Comments 63-year-old female with extensive PMH which includes CAD with stents and hemorrhoids, is here with wanting to check her INR level. Last Friday it was done at the Coumadin clinic in [place] and was 6.5 and she was told to hold her Coumadin for 3 days. Patient held it for 4 days and she wants to recheck it before restarting. Patient states that she had some bleeding from her rectum and she had a bowel movement today. Denies abdominal pain, fever and chills, nausea and vomiting, hematuria. Allergies and Home Medications Allergies Coded Allergies: Penicillins (Verified Allergy, Unknown, 04/19/23) adhesive tape (Verified Allergy, Unknown, 04/19/23) atorvastatin (Verified Allergy, Unknown, 04/19/23) bee venom protein (honey bee) (Verified Allergy, Unknown, 04/19/23) isosorbide (Verified Allergy, Unknown, 04/19/23) ketorolac (Verified Allergy, Unknown, 04/19/23) methylprednisolone (Verified Allergy, Unknown, 04/19/23) promethazine (Verified Allergy, Unknown, 04/19/23) venom-honey bee (Unverified Allergy, Unknown, 04/19/23) Uncoded Allergies: TAPE (Allergy, Unknown, 01/20/23) Patient Home Medication List Home Medication List Reviewed: Yes Acetaminophen (Acetaminophen) 500 Mg Tablet, 500-1,000 MG PO Q8H PRN for PAIN- MILD (1-4), (Reported) Entered as Reported by: ALEJANDRA GARCIA on 02/20/16 1558 Aspirin (Aspirin EC) 81 Mg Tablet.dr, 81 MG PO DAILY, (Reported) Entered as Reported by: JANINE DUNCAN on 05/10/22 1004 Cefuroxime Axetil (Cefuroxime) 250 Mg Tablet, 250 MG PO BID Prescribed by: BEE MACE on 01/02/23 1316 Diltiazem HCl (Diltiazem 24Hr ER) 120 Mg Cap.er.24h, 120 MG PO BID Prescribed by: ELZBIETA VELEZ JR, MD on 05/10/22 1219 Ezetimibe (Ezetimibe) 10 Mg Tablet, 10 MG PO HS Prescribed by: ELZBIETA VELEZ JR, MD on 05/10/22 1219 Levothyroxine Sodium (Levothyroxine Sodium) 150 Mcg Tablet, 150 MCG PO HS, (Reported) Entered as Reported by: ALEJANDRA GARCIA on 02/20/16 1524 Nitroglycerin (Nitroglycerin) 0.4 Mg Tab.subl, 0.4 MG SL UD PRN for CHEST PAIN, (Reported) Entered as Reported by: JANINE DUNCAN on 05/10/22 1004 Nitroglycerin (Nitro-Dur 0.6 MG/HR) 0.6 Mg/Hour Patch.td24, 0.6 MG TD DAILY PRN for CHEST PAIN (ANGINA), (Reported) Entered as Reported by: JANINE DUNCAN on 05/10/22 1004 Omeprazole (Omeprazole) 40 Mg Capsule.dr, 40 MG PO HS, (Reported) Entered as Reported by: JANINE DUNCAN on 05/10/22 1005 Ondansetron (Ondansetron Odt) 4 Mg Tab.rapdis, 4 MG PO Q6H PRN for NAUSEA/VOMITING Prescribed by: TESSY ABERNATHY on 05/31/23 1726 Povidone (Soothe Hydration) 1.25 % Drops, 1-2 DROPS OU UD PRN for DRY EYES, (Reported) Entered as Reported by: JANINE DUNCAN on 03/01/22 1220 Rosuvastatin Calcium (Rosuvastatin Calcium) 20 Mg Tablet, 40 MG PO HS Prescribed by: ELZBIETA VELEZ JR, MD on 05/10/22 1219 Sulfamethoxazole/Trimethoprim (Bactrim Ds Tablet) 1 Each Tablet, 1 EACH PO BID Prescribed by: ROWENA MENDEZ on 07/20/22 1841 Warfarin Sodium (Warfarin Sodium) 5 Mg Tablet, 5 MG PO WED,,SAT @HS, (Reported) Entered as Reported by: ALEJANDRA GARCIA on 02/20/16 1542 Warfarin Sodium (Warfarin Sodium) 5 Mg Tablet, 7.5 MG PO BAIN,MO,,TH @HS, (Reported) Entered as Reported by: JANINE DUNCAN on 07/17/20 1138 Review of Systems Review of Systems Constitutional: no symptoms reported EENTM: no symptoms reported Respiratory: no symptoms reported Cardiovascular: no symptoms reported Gastrointestinal: see HPI Genitourinary: no symptoms reported Musculoskeletal: no symptoms reported Skin: no symptoms reported Psychiatric/Neurological: No Symptoms Reported Past Acmdhiu-Zcujdm-Bwtanh Hx Immunizations Up To Date First/Initial COVID19 Vaccinat: denies Second COVID19 Vaccination Festus: denies Third COVID19 Vaccination Date: denies Past Medical History Surgery/Hospitalization HX: GERD; Chronic UTI's; Uterine Fibroids; OA; Chronic Abdominal pain; Neuropathy; Thyroidectomy; Asthma; Sleep Apnea; DVT "four heart stents", appy, CAGE surgery neck Surgeries: Yes Appendectomy, Coronary Stent Respiratory: Yes COPD Cardiac: Yes Coronary Artery Disease, Hypertension Genitourinary: Yes Kidney Infection, Bladder Infection Endocrine: Yes Hypothyroidsim Family Medical History Arthritis G8 SISTER Cardiovascular disease 03 FATHER Colon cancer 03 MOTHER Completed stroke 03 MOTHER Hypertension 03 MOTHER G8 BROTHER Myocardial infarction 03 MOTHER Thyroid disease G8 SISTER No Pertinent Family Hx Physical Exam Vital Signs Capillary Refill : Height, Weight, BMI Height: '" Weight: lbs. oz. kg; 55.00 BMI Method: General Appearance: No Apparent Distress, Obese HEENT: PERRL/EOMI Neck: Full Range of Motion Respiratory: Lungs Clear, Normal Breath Sounds Cardiovascular: Regular Rate, Rhythm Gastrointestinal: Normal Bowel Sounds, Non Tender, Soft Rectal: Heme Negative Stool, Hemorrhoids (Multiple external hemorrhoids present) Back: Normal Inspection Neurologic/Psychiatric: Alert, Oriented x3 Progress/Results/Core Measures Suspected Sepsis SIRS Temperature: Pulse: Respiratory Rate: Laboratory Tests 06/28/23 21:40: White Blood Count 9.7 Blood Pressure / Mean: Laboratory Tests 06/28/23 21:40: Creatinine 0.81, INR Comment 1.4, Platelet Count 204, Total Bilirubin 0.4 Results/Orders Lab Results Laboratory Tests Test 06/28/23 21:40 Range/Units White Blood Count 9.7 4.3-11.0 10^3/uL Red Blood Count 4.16 3.80-5.11 10^6/uL Hemoglobin 12.0 11.5-16.0 g/dL Hematocrit 40 35-52 % Mean Corpuscular Volume 95 80-99 fL Mean Corpuscular Hemoglobin 29 25-34 pg Mean Corpuscular Hemoglobin Concent 30 L 32-36 g/dL Red Cell Distribution Width 15.8 H 10.0-14.5 % Platelet Count 204 130-400 10^3/uL Mean Platelet Volume 10.2 9.0-12.2 fL Immature Granulocyte % (Auto) 0 % Neutrophils (%) (Auto) 67 42-75 % Lymphocytes (%) (Auto) 25 12-44 % Monocytes (%) (Auto) 5 0-12 % Eosinophils (%) (Auto) 3 0-10 % Basophils (%) (Auto) 0 0-10 % Neutrophils # (Auto) 6.5 1.8-7.8 10^3/uL Lymphocytes # (Auto) 2.4 1.0-4.0 10^3/uL Monocytes # (Auto) 0.5 0.0-1.0 10^3/uL Eosinophils # (Auto) 0.3 0.0-0.3 10^3/uL Basophils # (Auto) 0.0 0.0-0.1 10^3/uL Immature Granulocyte # (Auto) 0.0 0.0-0.1 10^3/uL Prothrombin Time 17.8 H 12.2-14.7 SEC INR Comment 1.4 0.8-1.4 Activated Partial Thromboplast Time 30 24-35 SEC Sodium Level 133 L 135-145 MMOL/L Potassium Level 4.0 3.6-5.0 MMOL/L Chloride Level 95 L 98-107 MMOL/L Carbon Dioxide Level 25 21-32 MMOL/L Anion Gap 13 5-14 MMOL/L Blood Urea Nitrogen 11 7-18 MG/DL Creatinine 0.81 0.60-1.30 MG/DL Estimat Glomerular Filtration Rate 81 BUN/Creatinine Ratio 14 Glucose Level 320 H 70-105 MG/DL Calcium Level 9.2 8.5-10.1 MG/DL Corrected Calcium 9.5 8.5-10.1 MG/DL Magnesium Level 2.0 1.6-2.4 MG/DL Total Bilirubin 0.4 0.1-1.0 MG/DL Aspartate Amino Transf (AST/SGOT) 28 5-34 U/L Alanine Aminotransferase (ALT/SGPT) 19 0-55 U/L Alkaline Phosphatase 106 40-136 U/L Total Protein 7.0 6.4-8.2 GM/DL Albumin 3.6 3.2-4.5 GM/DL Lipase 48 8-78 U/L My Cecy Sam - KOLTON KEMP MD Protime With Inr (9/2/23 21:31) Partial Thromboplastin Time (06/28/23 21:31) Cbc With Automated Diff (06/28/23 21:35) Comprehensive Metabolic Panel (06/28/23 21:35) Drug Screen Stat (Urine) (06/28/23 21:35) Lactic Acid Analyzer (06/28/23 21:35) Lipase (06/28/23 21:35) Magnesium (06/28/23 21:35) Ua Culture If Indicated (06/28/23 21:35) Chest 1 View Ap/Pa Only (06/28/23 21:36) Occult Blood Stool (06/28/23 22:11) Vital Signs/I&O Capillary Refill : Progress Note : Progress Note 1. INR CHECK AND HEMORRHOIDS: - CXR: no acute changes - CBC: Hemoglobin is stable and 12.0 -CMP unremarkable -Rectal exam showed external hemorrhoids which is likely the cause of bleeding -Fecal occult blood was negative -INR is 1.4, and patient is already on aspirin and Plavix. Advised patient to follow-up with Coumadin clinic and call PCP as soon as possible to see if they would like to restart her Coumadin or just keep her only on aspirin and Plavix. -The patient was seen in the ED, and treated appropriately to presentation at a specific point in time. Patient is informed that there is a possibility that disease and illness can evolve and change in acuity rapidly or slowly after patient is discharged from the ER. Precautionary advice given to the patient for immediate return to ER if symptoms worsen or do not resolve, and to seek emergency care sooner rather than later. Pt also advised on the importance of PCP follow up and compliance with management and follow up plan with PCP and/or specialist, as this is part of the management plan. Pt verbally expressed understanding. Diagnostic Imaging Diagonstic Imaging: Xray Plain Films/CT/US/NM/MRI: chest Comments [facility]. [place], [place] NAME: ISABEL HUNTLEY Deedee [facility] REC#: [id number] PT STATUS: REG ER : 1960 PHYSICIAN: KOLTON KEMP MD ADMIT DATE: 06/28/23/ER FS Draft Date of Exam:06/28/23 CHEST 1 VIEW AP/PA ONLY INDICATION: GI bleed. COMPARISON: 04/03/2023. FINDINGS: Single frontal view of the chest demonstrates enlargement of the cardiac silhouette. Pulmonary vasculature is within normal limits. The lungs are well aerated and clear. No large pleural effusion or pneumothorax is seen. The visualized osseous structures show no acute abnormality. IMPRESSION: Cardiomegaly, but no evidence of failure or focal infiltrate. Dictated on workstation # [id number] Dict: 06/28/232149 Trans: 06/28/232155 PJ [id number] Interpreted by: POLLY LEMON MD Electronically signed by: Departure Impression Primary Impression: Patient informed of international normalized ratio (INR) result Additional Impressions: Encounter for anticoagulation monitoring with international normalized ratio (INR) goal of 1.5-2.5 External hemorrhoid Disposition: 01 HOME, SELF-CARE Condition: Stable Departure-Patient Inst. Referrals: TITO BARBER MD (PCP) Primary Care Physician ISADORA ARORA DO (Family) Primary Care Physician Patient Instructions: Hemorrhoids ED, Prothrombin time (PT) test and International Normalized Ratio (INR), What to Do When Your INR Is Too High Add. Discharge Instructions: -INR is 1.4, and patient is already on aspirin and Plavix. Advised patient to follow-up with Coumadin clinic and call PCP as soon as possible to see if they would like to restart her Coumadin or just keep her only on aspirin and Plavix. KOLTON KEMP MD Jun 28, 2023 21:31
[2023-06-28 21:45] LABS: BASOPHILS % (AUTO) 0 % (0-10); EOSINOPHILS # (AUTO) 0.3 10^3/uL (0.0-0.3); EOSINOPHILS % (AUTO) 3 % (0-10); HEMATOCRIT 40 % (35-52); LYMPHOCYTES # (AUTO) 2.4 10^3/uL (1.0-4.0); LYMPHOCYTES % (AUTO) 25 % (12-44); MEAN CORPUSCULAR HEMOGLOBIN 29 pg (25-34); MEAN CORPUSCULAR HGB CONC 30 g/dL (32-36); MEAN CORPUSCULAR VOLUME 95 fL (80-99); MEAN PLATELET VOLUME 10.2 fL (9.0-12.2); MONOCYTES # (AUTO) 0.5 10^3/uL (0.0-1.0); MONOCYTES % (AUTO) 5 % (0-12); NEUTROPHILS # (AUTO) 6.5 10^3/uL (1.8-7.8); NEUTROPHILS % (AUTO) 67 % (42-75); PLATELET COUNT 204 10^3/uL (130-400); WHITE BLOOD COUNT 9.7 10^3/uL (4.3-11.0)
[2023-06-28 21:57] LABS: INR 1.4 (0.8-1.4); PROTHROMBIN TIME PATIENT 17.8 SEC (12.2-14.7)
--- NOTE | 2023-06-28 21:57 | Diagnostic Imaging Report ---
INDICATION: GI bleed. COMPARISON: 04/03/2023. FINDINGS: Single frontal view of the chest demonstrates enlargement of the cardiac silhouette. Pulmonary vasculature is within normal limits. The lungs are well aerated and clear. No large pleural effusion or pneumothorax is seen. The visualized osseous structures show no acute abnormality. IMPRESSION: Cardiomegaly, but no evidence of failure or focal infiltrate. Dictated by: Dictated on workstation # [id number]
[2023-06-28 22:08] LABS: CREATININE SERUM 0.81 MG/DL (0.60-1.30)
[2023-06-28 22:09] LABS: ALBUMIN 3.6 GM/DL (3.2-4.5); BILIRUBIN,TOTAL 0.4 MG/DL (0.1-1.0); CALCIUM 9.2 MG/DL (8.5-10.1)
[2023-06-28 22:40] VITALS: BP 122/63
== END 2023-06-28 22:40 | disposition home or self-care (01) ==
LOC: EDUNIT# 21:18 → ER FS 21:20
DX: R79.1 Abnormal coagulation profile (principal); K64.4 Residual hemorrhoidal skin tags; Z79.82 Long term (current) use of aspirin; Z79.02 Long term (current) use of antithrombotics/antiplatelets; Z28.310 Unvaccinated for COVID-19
CPT/HCPCS: 71045; 80053; 82274; 83690; 83735; 85610; 85730